=== PATIENT | male | born 1935 | race Caucasian/White ===

== ENCOUNTER 2017-04-12 10:31 | Inpatient (IN) | payer MEDICARE, OTHER ==
[~2017-04-12] VITALS: Ht 165.1 cm; Wt 70.0 kg
[2017-04-12] VITALS (35 sets, daily range): BP systolic 80–149; BP diastolic 28–83; PULSE 63–106; RESP 12–45; Ht 165.1 cm; Wt 70.0 kg
[2017-04-12] MEDS ORDERED: SOD CHLORIDE 0.9% 1,000 ML IV STA ×2 (10:32)
[2017-04-12] MEDS ORDERED: CEFEPIME 2GM/50 ML (PMX) 50 ML IVPB STA (10:32)
[2017-04-12] MEDS ORDERED: VANCOMYCIN 1 GM (PMX) 250 ML IVPB ONE (11:00)
[2017-04-12 11:15] LABS: ABNORMAL IP MESSAGE 1; BASOPHILS % 0.2 % (0.0-2.0); EOSINOPHILS # 0.1 10^3/ul (0.0-0.5); EOSINOPHILS % 0.7 % (0.0-7.0); HEMOGLOBIN 8.7 g/dl (14.0-18.0); LYMPHOCYTES # 0.9 10^3/ul (0.8-2.9); LYMPHOCYTES % 7.8 % (15.0-51.0); MEAN CORPUSCULAR HEMOGLOBIN 29.6 pg (29.0-33.0); MEAN CORPUSCULAR HGB CONC 32.2 g/dl (32.0-37.0); MEAN CORPUSCULAR VOLUME 91.8 fl (82.0-101.0); MEAN PLATELET VOLUME 10.4 fl (7.4-10.4); MONOCYTE # 1.3 10^3/ul (0.3-0.9); MONOCYTES % 11.4 % (0.0-11.0); NEUTROPHIL # 9.2 10^3/ul (1.6-7.5); NEUTROPHILS % 79.4 % (39.0-77.0); PLATELET COUNT 93 10^3/UL (140-415); POSITIVE DIFF @See below; RED BLOOD COUNT 2.94 10^6/ul (4.70-6.10); RED CELL DISTRIBUTION WIDTH 17.3 % (11.5-14.5); WHITE BLOOD COUNT 11.5 10^3/ul (4.8-10.8)
--- NOTE | 2017-04-12 11:19 | RADRPT ---
PROCEDURE: XR Chest. CLINICAL INDICATION: Sepsis. TECHNIQUE: Single frontal view. COMPARISON: None. FINDINGS: There is mild right basilar atelectasis. The lungs are otherwise clear. The heart is enlarged. There is calcification in the aorta consistent with atherosclerosis. There ar e sternal wires and mediastinal clips. There is a tracheostomy tube in satisfactory position. There is no pleural effusion. There is no pneumothorax. IMPRESSION: 1. Mild right basilar atelectasis. 2. Cardiomegaly and atherosclerosis. 3. Previous median sternotomy. 4. Tracheostomy tube. 5. Otherwise unremarkable chest radiograph. RPTAT: QQ .Alan Nash MD, MD Date Time Electronically viewed and signed by .Alan Nash MD, MD on 04/12/2017 11:19 .R/
[2017-04-12 11:28] LABS: AADO2 Arterial 186.8 mmHg (7.0-24.0); Allen Test ACCEPTAB; Arterial Base Excess 1.3 mmol/L (-3.0-3); Arterial COHb 0.3 % (0.0-3.0); Arterial Fraction of Oxyhgb 97.9 % (93.0-99.0); Arterial HCO3 25.5 mmol/L (22.0-26.0); Arterial MetHb 0.2 % (0.0-1.5); Arterial Total Hemglobin 9.4 g/dl (12.0-18.0); MODE VENT - AC
[2017-04-12 11:37] LABS: ALBUMIN 3.7 g/dl (3.3-4.9); ALBUMIN/GLOBULIN RATIO 1.05; BILIRUBIN,INDIRECT 0.3 mg/dl (0-1.1); BILIRUBIN,TOTAL 0.3 mg/dl (0.2-1.3); CALCIUM 9.5 mg/dl (8.4-10.2); CREATININE 0.79 mg/dl (0.61-1.24); POTASSIUM 5.3 mmol/L (3.5-5.1); TOTAL PROTEIN 7.2 g/dl (6.1-8.1)
[2017-04-12 11:47] LABS: INR 1.09; PROTIME 14.1 Sec (12.2-14.2); PT RATIO 1.1
[2017-04-12 11:48] LABS: PARTIAL THROMBOPLASTIN TIME 33.4 Sec (25.0-35.0)
[2017-04-12] MEDS ORDERED: SOD CHLORIDE 0.9% 500 ML IV STA (11:48)
[2017-04-12 11:49] LABS: TROPONIN-I 0.056 ng/ml (0.00-0.12)
[2017-04-12] MEDS ORDERED: ONDANSETRON 4 MG INJ IV PRN ×2 (12:00→15:00)
[2017-04-12] MEDS ORDERED: ACETAMINOPHEN 325 MG TAB PO PRN (12:00)
[2017-04-12] MEDS ORDERED: LACTINEX GTB (13:30)
[2017-04-12] MEDS ORDERED: LORA-441 GTB (13:32)
[2017-04-12] MEDS ORDERED: CHLO473M4 MM (13:32)
[2017-04-12] MEDS ORDERED: DOCU-144 GTB (13:33)
[2017-04-12] MEDS ORDERED: PHEN100O4 GTB (13:34)
[2017-04-12] MEDS ORDERED: BISA10SU75 PR (13:34)
--- NOTE | 2017-04-12 13:35 | RADRPT ---
PROCEDURE: CT Brain without contrast. CLINICAL INDICATION: Altered mental status. Possible sepsis. TECHNIQUE: A CT of the brain was performed on a multidetector CT scanner utilizing axial sections from the skull base through the vertex without contrast. Images were reviewed on a high-resolution [employer] workstation. Exam CTDI = 43.05 mGy and the DLP = 720.23 mGy-cm. DICOM images are available. One or more of the following dose reduction techniques were used: Automated exposure control Adjustment of the mA and/or kV according to patient size. Use of iterative reconstruction technique. COMPARISON: None available FINDINGS: Moderately severe diffuse cerebral and cerebellar atrophy is present. There is proportionate dilata tion of the ventricular system and sulci in a symmetric fashion. There is prominence of the extraaxi al spaces secondary to atrophy. There is no evidence of intracranial hemorrhage, mass effect or midl ine shift. There is approximately 1.1 x 0.7 cm extra-axial calcified structure in the right anterior middle cranial fossa along the lesser wing of the right sphenoid bone suggestive of a meningioma. N o abnormal intra-axial or extra-axial fluid collections are seen. The density of the brain is josh l and the wagner/white matter differentiation is well preserved. Mild patchy diffuse deep white matte r microangiopathic ischemic change is seen. The osseous structures are unremarkable. There is ne ar complete opacification of the sphenoid sinuses and posterior ethmoidal air cells. There is partia l opacification of the bilateral maxillary sinuses. Frontal sinuses are clear. Bilateral mastoid air cells and middle ear cavities are clear.. Vascular calcifications are identified. IMPRESSION: 1. No intracranial hemorrhage, mass effect or midline shift. 2. Moderately severe generalized atrophy. Mild microangiopathic ischemic change. 3. Intracranial atherosclerosis. 4. Paranasal sinus disease more evident in the sphenoid and posterior ethmoidal air cells. 5. Presumed small calcified meningioma in the right middle cranial fossa. No perilesional edema or associated mass effect. RPTAT: BB .Alexis Watkins MD, Date Time Electronically viewed and signed by .Alexis Watkins MD, on 04/12/2017 13:34 .O/
[2017-04-12] MEDS ORDERED: MINE133E23 PR (13:36)
[2017-04-12] MEDS ORDERED: FER325 GTB (13:36)
[2017-04-12] MEDS ORDERED: TERA1CAP39 GTB (13:37)
[2017-04-12] MEDS ORDERED: FURO20TA3 GTB (13:38)
[2017-04-12] MEDS ORDERED: LATA2.5D2 BOTH EYES (13:38)
[2017-04-12] MEDS ORDERED: ATOR20TA38 PO (13:39)
[2017-04-12] MEDS ORDERED: METO-448 PO (13:40)
[2017-04-12] MEDS ORDERED: ENOX40DI14 SC (13:42)
[2017-04-12] MEDS ORDERED: NIAC500T81 GTB (13:43)
[2017-04-12] MEDS ORDERED: MAGN400O4 GTB (13:43)
[2017-04-12] MEDS ORDERED: MULTI PO (13:43)
[2017-04-12] MEDS ORDERED: HYDR-906 GTB (13:44)
[2017-04-12] MEDS ORDERED: NICO1PAT43 TD (13:44)
[2017-04-12] MEDS ORDERED: FINA5TAB GTB (13:45)
[2017-04-12] MEDS ORDERED: POTA20LI5 GTB (13:45)
[2017-04-12] MEDS ORDERED: PANT40TA3 GTB (13:47)
[2017-04-12] MEDS ORDERED: MONT10TA21 GTB (13:49)
[2017-04-12] MEDS ORDERED: FENO145T25 GTB (13:49)
[2017-04-12] MEDS ORDERED: BETH25TA39 GTB (13:50)
[2017-04-12] MEDS ORDERED: ACET-2047 GTB (13:50)
[2017-04-12] MEDS ORDERED: CRAN3875 GTB (13:50)
[2017-04-12] MEDS ORDERED: FUROSEMIDE 40 MG INJ ONE (13:51)
[2017-04-12] MEDS ORDERED: VALP250C3 GTB (13:53)
[2017-04-12] MEDS ORDERED: morphine 2 MG INJ IV STA (13:54)
[2017-04-12] MEDS ORDERED: CHOL100062 GTB (13:55)
[2017-04-12] MEDS ORDERED: VIT500LI GTB (13:55)
[2017-04-12] MEDS ORDERED: LEVA1.257 INHALATION (13:56)
[2017-04-12] MEDS ORDERED: morphine 2 MG INJ ONE (13:56)
--- NOTE | 2017-04-12 13:58 | ERD ---
ER Documentation Chief Complaint Chief Complaint bib paramedics from alf - altered loc HPI Patient is a 81-year-old male who presents more altered than usual. He came from a nursing facility. He was brought in by ambulance. Please note the history and physical exam is limited secondary to the patient's encephalopathy. Dr. Ramirez is the patient's primary doctor and said the patient had a fever at the nursing facility. ROS All systems reviewed and are negative except as per history of present illness. Medications Home Meds Reported Medications Cholecalciferol* (Vitamin D3*) 1,000 Unit Tablet, 2000 UNIT GTB DAILY, TAB 04/12/17 Vit C-Ascorbate Ca-Ascorb Sod (Vitamin C) 500 Mg/15 Ml Liquid, 500 MG GTB BID, ML 04/12/17 Valproic Acid* (Valproic Acid*) 250 Mg Capsule, 250 MG GTB BID, CAP 04/12/17 Cran/Vitc/Mannose/Inulin/Brom (Uti-Stat Liquid) 3,875 Mg/30 Ml Liquid, 3875 MG GTB DAILY 04/12/17 Bethanechol Chloride* (Urecholine*) 25 Mg Tab, 25 MG GTB DAILY, TAB 04/12/17 Acetaminophen* (Acetaminophen*) 650 Mg Tablet, 650 MG GTB Q6H Y for PAIN AND OR ELEVATED TEMP, #30 TAB 04/12/17 Fenofibrate Nanocrystallized* (Tricor*) 145 Mg Tablet, 145 MG GTB DAILY, TAB 04/12/17 Montelukast Sodium* (Singulair*) 10 Mg Tablet, 10 MG GTB QHS, #30 TAB 04/12/17 Pantoprazole* (Protonix*) 40 Mg Tablet., 40 MG GTB DAILY, TAB 04/12/17 Finasteride* (Proscar*) 5 Mg Tablet, 5 MG GTB DAILY, TAB 04/12/17 Potassium Chloride* (Potassium Chloride*) 20 Meq/15 Ml Liquid, 20 MEQ GTB DAILY , ML 04/12/17 Hydrocodone/Acetaminophen ([place] 5-325 Tablet) 1 Each Tablet, 1 EACH GTB Q6 Y for PAIN, TAB 04/12/17 Nicotine* (Nicotine* Patch) 7 mg/day Patch, 1 PATCH TD DAILY, PATCH 04/12/17 Niacin* (Niacin*) 500 Mg Tablet, 1000 MG GTB DAILY, TAB 04/12/17 Multivitamins* (Theragran*) 1 Tab Tab, 1 TAB PO DAILY, TAB 04/12/17 Magnesium Hydroxide* (Milk Of Magnesia*) 400 Mg/5 Ml Oral.susp, 30 ML GTB DAILY , ML 04/12/17 Enoxaparin Sodium* (Lovenox*) 40 Mg/0.4 Ml Syringe, 40 MG SC DAILY, SYR 04/12/17 Metoprolol Tartrate* (Lopressor*) 25 Mg Tab, 25 MG PO BID, #60 TAB 04/12/17 Atorvastatin Calcium* (Atorvastatin Calcium*) 20 Mg Tablet, 20 MG PO QHS, #30 TAB 04/12/17 Latanoprost (Latanoprost) 2.5 Ml Drops, 1 DROP BOTH EYES QHS, #1 BOTTLE 04/12/17 Furosemide* (Furosemide*) 20 Mg Tablet, 20 MG GTB DAILY, #60 TAB 04/12/17 Terazosin Hcl* (Hytrin*) 1 Mg Cap, 1 MG GTB DAILY, CAP 04/12/17 Mineral Oil* (Fleet* Mineral Oil Enema) 133 Ml Oil, 133 ML [place] DAILY Y for CONSTIPATION, ENEMA 04/12/17 Ferrous Sulfate* (Ferrous Sulfate*) 325 Mg Tabec, 330 MG GTB TID, TAB 04/12/17 Bisacodyl* (Bisacodyl*) 10 Mg Supp, 10 MG [place] Q24H for CONSTIPATION, SUPP 04/12/17 Phenytoin* (Dilantin* Susp) 100 Mg/4 Ml Oral.susp, 200 MG GTB Q12 for 30 Days, BOTTLE 04/12/17 Docusate Sodium* (Colace*) 100 Mg Capsule, 100 MG GTB BID, #60 CAP 04/12/17 Chlorhexidine Gluconate (Peridex) 473 Ml Mouthwash, 15 ML MM BID, BOTTLE 04/12/17 Lorazepam* (Ativan*) 0.5 Mg Tablet, 0.5 MG GTB BID Y for ANXIETY, #30 TAB 04/12/17 Lactobacillus Acidophilus* (Lactinex*) 1 Tab Chew, 1 TAB GTB DAILY, TAB 04/12/17 PMhx/Soc History of Surgery: Yes (gastrostomy; tracheostomy) Hx Neurological Disorder: Yes (encephalopahy) Hx Respiratory Disorders: Yes (acute resp failure; copd) Hx Cardiac Disorders: Yes (atherosclerotic heart disease; hypertension; dm) Hx Miscellaneous Medical Probl: Yes (chronic kidney disease) Hx Alcohol Use: No Hx Substance Use: No Hx Tobacco Use: No Smoking Status: Never smoker FmHx Unable to obtain Physical Exam Vitals Vital Signs Date Time Temp Pulse Resp B/P Pulse Ox O2 Delivery O2 Flow Rate FiO2 04/12/17 11:30 68 19 107/47 99 Mechanical Ventilator 04/12/17 11:04 65 16 100 50 04/12/17 10:40 Venti Mask 04/12/17 10:35 99.4 66 18 115/52 100 Physical Exam Const: Chronically ill Head: Atraumatic Eyes: Normal Conjunctiva ENT: Normal External Ears, Nose and Mouth. Neck: Full range of motion..~ No meningismus. Resp: Rhonchorous breath sounds diffusely Cardio: Regular rate and rhythm, no murmurs Abd: Soft, non tender, non distended. Normal bowel sounds Skin: Pale skin Back: No midline or flank tenderness Ext: No cyanosis, or edema Neur: Awake encephalopathic at baseline Result Diagram: 04/12/17 1100 04/12/17 1100 Results 24 hrs Laboratory Tests Test 04/12/17 10:51 04/12/17 11:00 Blood Gas Specimen Source Blood arterial Arterial Blood Date Drawn 04/12/2017 11:05:55 AM Arterial Blood pH (Temp corrected) 7.438 Arterial Blood pCO2 (Temp correct) 38.6mmhg Arterial Blood pO2 (Temp corrected) 126.3mmHG Arterial Blood HCO3 25.5mmol/L Arterial Blood Base Excess 1.3mmol/L Arterial Blood Oxygen Saturation 98.4mmHG Cecil Test ACCEPTAB Arterial Blood Gas Puncture Site Right Radial Arterial Blood Carboxyhemoglobin 0.3% Arterial Blood Methemoglobin 0.2% Blood Gas A-a O2 Differential 186.8mmHg Oxyhemoglobin Percent 97.9% Total Hemoglobin 9.4g/dl Blood Gas Temperature 37.0C Blood Gas Respiration Rate 16.0 Blood Gas Actual Respiration Rate 16 Blood Gas Modality VENT - AC FiO2 50.0% Blood Gas Tidal Volume 500.0mL Blood Gas Low PEEP Setting 5.0cmH2O Blood Gas Notified Whom NAZ RODRIGUEZ Blood Gas Notified Time 04/12/2017 11:28:05 AM White Blood Count 11.510^3/ul Red Blood Count 2.9410^6/ul Hemoglobin 8.7g/dl Hematocrit 27.0% Mean Corpuscular Volume 91.8fl Mean Corpuscular Hemoglobin 29.6pg Mean Corpuscular Hemoglobin Concent 32.2g/dl Red Cell Distribution Width 17.3% Platelet Count 9310^3/UL Mean Platelet Volume 10.4fl Neutrophils % 79.4% Lymphocytes % 7.8% Monocytes % 11.4% Eosinophils % 0.7% Basophils % 0.2% Nucleated Red Blood Cells % 0.0/100WBC Neutrophils # 9.210^3/ul Lymphocytes # 0.910^3/ul Monocytes # 1.310^3/ul Eosinophils # 0.110^3/ul Basophils # 0.010^3/ul Nucleated Red Blood Cells # 0.010^3/ul Prothrombin Time 14.1Sec Prothrombin Time Ratio 1.1 INR International Normalized Ratio 1.09 Activated Partial Thromboplast Time 33.4Sec Sodium Level 137mmol/L Potassium Level 5.3mmol/L Chloride Level 98mmol/L Carbon Dioxide Level 29mmol/L Anion Gap 15 Blood Urea Nitrogen 47mg/dl Creatinine 0.79mg/dl Glucose Level 193mg/dl Lactic Acid Level 3.0mmol/L Calcium Level 9.5mg/dl Total Bilirubin 0.3mg/dl Direct Bilirubin 0.00mg/dl Indirect Bilirubin 0.3mg/dl Aspartate Amino Transf (AST/SGOT) 37IU/L Alanine Aminotransferase (ALT/SGPT) 26IU/L Alkaline Phosphatase 72IU/L Troponin I 0.056ng/ml Total Protein 7.2g/dl Albumin 3.7g/dl Globulin 3.50g/dl Albumin/Globulin Ratio 1.05 Current Medications Medications (Trade) Dose Ordered Sig/Lulu Route PRN Reason Start Time Stop Time Status Last Admin Dose Admin Cefepime HCl 50 ml @ 100 mls/hr ONCE STAT IVPB 04/12/17 10:32 04/12/17 11:01 DC 04/12/17 11:01 Vancomycin HCl 250 ml @ 125 mls/hr ONCE ONCE IVPB 04/12/17 11:00 04/12/17 12:59 DC 04/12/17 11:48 Sodium Chloride 1,000 ml @ 1,000 mls/hr Q1H STAT IV 04/12/17 10:32 04/12/17 11:31 DC 04/12/17 11:01 Sodium Chloride 1,000 ml @ 1,000 mls/hr Q1H STAT IV 04/12/17 10:32 04/12/17 11:31 DC 04/12/17 11:03 Sodium Chloride (NS) 500 ml @ 500 mls/hr Q1H STAT IV 04/12/17 11:48 04/12/17 12:47 DC 04/12/17 12:41 Procedures/MDM EKG read by me: Rate/Rhythm: Regular rate and rhythm at a normal rate Intervals: Normal Impression: No evidence of ischemia or arrhythmia Chest x-ray shows no pneumonia or pneumothorax per radiology. Admit MDM: Patient's infectious symptoms have not stabilized and the patient is at risk of rapid decompensation. The patient will be admitted for careful hydration, antibiotic therapy, and infectious source control. Severe Sepsis criteria: Infectious source: Likely cystitis End organ damage indicated by: Active greater than 2 Sepsis Management: Time of recognition of sepsis: Upon arrival Within 3 hours of recognition: Blood cultures x 2 before broad-spectrum antibiotics: Yes 30 ml/kg NS bolus Completed Initial lactate 3.0 Repeat lactate pending Time of recognition of septic shock: No septic shock Septic Shock Assessment: Any lactic acid > 4.0 No Persistent hypotension (SBP < 90 or 40 mmHg drop, MAP < 65) despite 30 mL/kg IV fluid bolus No Volume Re-assessment for Septic Shock (post 30 ml/kg bolus): No septic shock at this time Persistent Hypotension Treatment: Comfort care No Central line Not Required Vasopressor started Not required I considered further perfusion assessment with CVP measurement, SCVO2, bedside ultrasound volume assessment, passive leg raise, trial of further fluid bolus. And proceeded with 30 ml/kg fluid bolus of NSS, broad spectrum antibiotics, and admission. Accepting Care Team Current data and ongoing care discussed. Admitting Physician: Dr. Ramirez the primary doctor Customer Service Professional(s): None Outstanding Data: Culture results and repeat lactic acid Critical Care: Critical care time 35 minutes excluding all billable procedures Emergent fluid management while maintaining close respiratory support. Provision of immediate and broad-spectrum antibiotic therapy. Simultaneous assessment for possible sources in order to direct targeted therapy. Consideration for invasive and chemical support to prevent cardiopulmonary collapse. Departure Diagnosis: Primary Impression: Severe sepsis Additional Impression: Altered level of consciousness Condition: Serious SANDRO SOLO MD Apr 12, 2017 13:58
[2017-04-12 14:00] LABS: AADO2 Arterial 357.7 mmHg (7.0-24.0); Allen Test ACCEPTAB; Arterial Base Excess -3.1 mmol/L (-3.0-3); Arterial COHb 0.3 % (0.0-3.0); Arterial Fraction of Oxyhgb 98.8 % (93.0-99.0); Arterial MetHb 0.2 % (0.0-1.5); Arterial Total Hemglobin 10.8 g/dl (12.0-18.0); MODE AMBU BAG
[2017-04-12] MEDS ORDERED: FUROSEMIDE 40 MG INJ IV ONE (14:00)
--- NOTE | 2017-04-12 14:25 | RADRPT ---
PROCEDURE: XR Chest. CLINICAL INDICATION: Chest pain , respiratory distress TECHNIQUE: Single frontal view of the chest was obtained COMPARISON: None FINDINGS: The heart is enlarged. The thoracic aorta is calcified. There is a tracheostomy tube in place. There is mild elevation of the right diaphragm. There are mild bibasilar atelectatic changes. The lungs are otherwise clear. There is no pleural effusion or pneumothorax. RPTAT: AA IMPRESSION: Mild cardiomegaly. Calcified aorta consistent with atherosclerotic disease. Mild elevation of the right diaphragm. Mild bibasilar atelectatic changes. .Leno Nance MD, MD Date Time Electronically viewed and signed by .Leno Nance MD, on 04/12/2017 14:25 .S/
--- NOTE | 2017-04-12 14:34 | QN ---
Documentation Comment MILITARY EDUCATION COORDINATOR called on patient after returning from CT scan . Patient was just admitted from ED for AMS and found to be septic. Patient received IVF per protocol in ED. Patient was found to be tachypneic, in respiratory distress, and belly breathing. Lung sounds were diminished on auscultation. STAT ABG and CXR were ordered. ABG showed respiratory acidosis which was a change from ABG performed in ED. Lasix 40mg IV was given as well as Rodriguez cath was placed. patient had 200cc of urine out. CXR showed pulmonary congestion but no pleural effusions. EKG showed atrial fibrillation in the 100s. Morphine given due to tachypnea and heart rate improved to 80s and BP was 140s/. Patient was transported to ICU for higher level of care. Patients primary was informed of event and Certified Endoscopy Technician was contacted as well. >40 minutes of critical care time was spent with patient during Rapid response. VICTOR MANUEL COLLAZO MD Apr 12, 2017 14:34
--- NOTE | 2017-04-12 14:49 | HP ---
Date/Time of Note Date/Time of Note DATE: 04/12/17 TIME: 14:31 Assessment/Plan VTE Prophylaxis VTE Prophylaxis Intervention: SCD's Assessment/Plan Assessment/Plan -Acute hypoxic respiratory failure, continue ventilatory support, bronchodilators. Dr. Cordova is asked to see patient in pulmonology consultation. -Sepsis. Will obtain sputum blood and urine cultures if not done in the emergency room. Continue broad-spectrum antibiotics. Dr. Nagel is asked to see patient in infection disease consultation. -Atrial fibrillation with rapid ventricular response, Dr. Redd is asked to see patient in cardiology consultation. -Rule out acute coronary syndrome, will obtain cardiac enzymes 3 and 2D echo. -Metabolic encephalopathy -Anemia -Dysphagia with G-tube -History of ventilator dependent respiratory failure with tracheostomy -CHF -Hypertension -Seizure disorder -BPH Further recommendations based on clinical course. Plan of care discussed with Dr. Ramirez. HPI/ROS Admit Date/Time Admit Date/Time Apr 12, 2017 at 11:52 Hx of Present Illness The patient is 81-year-old gentleman from long-term facility. Patient with history of CHF hypertension, chronic kidney disease, ventilator dependent respiratory failure, dysphagia with PEG, seizure disorder, BPH. Patient was brought from long-term facility to emergency room due to altered level of consciousness. Patient cannot provide any history currently intubated on ventilatory support, most of the history was obtained from medical record records and talking to nursing staff. Patient underwent CT of the brain which did not reveal any intracranial hemorrhage, mass effect or midline shift. Patient was noted to have leukocytosis and elevated lactate. Patient was giving IV fluids and started on broad-spectrum antibiotics and admitted to telemetry floor. After 15 minutes of admissions to the telemetry patient went to atrial fibrillation with rapid ventricular response, RT was called patient was giving Lasix was transferred to intensive care unit for further management. PMH/Family/Social Past Medical History per HPI Past Surgical History Status post tracheostomy status post G-tube placement Family History Significant Family History: no pertinent family hx Social History Smoking Status: Never smoker Exam/Review of Systems Vital Signs Vitals Vital Signs Date Time Temp Pulse Resp B/P Pulse Ox O2 Delivery O2 Flow Rate FiO2 04/12/17 12:33 106 04/12/17 12:00 104/43 04/12/17 11:30 19 99 Mechanical Ventilator 04/12/17 11:04 50 04/12/17 10:35 99.4 Exam Constitutional: frail, non-verbal Head: atraumatic, normocephalic Neck: other (Acute ostomy at the base of the neck), supple Respiratory: diminished breath sounds Cardiovascular: nl pulses, regular rate and rhythm Gastrointestinal: non-tender, other (G-tube), soft Musculoskeletal: nl extremities to inspection Extremities: normal pulses Labs Result Diagram: 04/12/17 1100 04/12/17 1100 Medications Medications Current Medications Furosemide (Lasix) 40 mg ONCE ONCE IV ; Start 04/12/17 at 14:00; Stop at 14:01; Status SAMANTHAV AAMIR ZUNIGA Apr 12, 2017 14:43
[2017-04-12] MEDS ORDERED: IPRATROPIUM (NEB) 0.5 MG/2.5 ML AMP NEB PRN (15:00)
[2017-04-12] MEDS ORDERED: ACETAMINOPHEN 650MG/20.3ML CUP PO PRN (15:00)
[2017-04-12] MEDS ORDERED: NACL 0.9% 3 ML SYG IV SCH (15:00)
[2017-04-12] MEDS ORDERED: ALBUTEROL 0.083% (NEB) 2.5 MG/3 ML AMP NEB PRN (15:00)
[2017-04-12] MEDS ORDERED: morphine 2 MG INJ IV PRN (15:00)
--- NOTE | 2017-04-12 15:22 | CONS ---
DATE OF ADMISSION: 04/12/2017 DATE OF CONSULTATION: 04/12/2017 TYPE OF CONSULTATION: Infectious Disease. REASON FOR CONSULTATION: Antibiotic management. HISTORY OF PRESENT ILLNESS: Roldan Kelly is a 81-year-old male who was admitted through the [facility] room with altered levels of consciousness and is being seen for antibiotic management. The p atient is encephalopathic. Problems include: 1. Status post tracheostomy. 2. Gastrostomy. 3. Encephalopathy. 4. Acute respiratory failure. 5. Chronic obstructive pulmonary disease. 6. Coronary artery disease. 7. Hypertension. 8. Diabetes mellitus 9. Chronic renal disease. Acutely, the patient comes in encephalopathic and short of breath. In the emergency room, his tempe rature was 99.4. PAST MEDICAL HISTORY: Operations as outlined. FAMILY HISTORY: Noncontributory. SOCIAL HISTORY: Does not smoke, drink or abuse drugs. ALLERGIES: NONE TO PENICILLIN, SULFA OR FOODS. MEDICATIONS: Per chart. REVIEW OF SYSTEMS: Noncontributory. PHYSICAL EXAMINATION: GENERAL: The patient is a chronically ill-appearing male who is awake, responsive, in no acute dist ress. VITAL SIGNS: Stable. He is afebrile. SKIN: Without generalized rash. HEENT: Within normal limits. NECK: Supple. LYMPH NODES: None palpable. CHEST: Decreased breath sounds at the bases. HEART: Without murmur or gallop. ABDOMEN: Soft, nontender, without organosplenomegaly or masses. EXTREMITIES: Without cyanosis, clubbing, or edema. RECTAL AND GENITAL: Exams deferred. NEUROLOGICAL: No focal neurological abnormality is noted. He has a tracheostomy. HOSPITAL COURSE: On chest x-ray, the heart is enlarged. No pleural effusion. Lungs were clear. T he patient was transported to the ICU, tachypneic, in respiratory distress. Lungs sounds diminished . Rodriguez catheter was placed. IMPRESSION AND PLAN: The patient was in atrial fibrillation and he was started on vancomycin and ce fepime, which we should continue. I will dictate my findings to the hospitalist. Dictated By: LAURA DAWN MD, JD/NTS Conf#: [id number] DID#: [id number] CC: ROSHNI FABIAN MD; JOSE MARTIN GLYNN MD;*EndCC*
[2017-04-12] MEDS ORDERED: METOPROLOL 5 MG INJ IV PRN (15:30)
[2017-04-12] MEDS ORDERED: GLUCOSE GEL 15 GRAM TUBE PO PRN ×2 (15:30)
[2017-04-12] MEDS ORDERED: DEXTROSE 50% 50 ML SYRINGE IV PRN ×2 (15:30)
[2017-04-12] MEDS ORDERED: MIDAZOLAM (DRIP) 50 mg/50 mL 50 ML IV SCH (15:30)
[2017-04-12] MEDS ORDERED: GLUCAGON 1 MG INJ IM PRN (15:30)
[2017-04-12] MEDS ORDERED: GLUCOSE GEL 15 GRAM TUBE BUCCAL PRN (15:30)
[2017-04-12 15:49] LABS: AADO2 Arterial 238.5 mmHg (7.0-24.0); Allen Test ACCEPTAB; Arterial COHb 0.3 % (0.0-3.0); Arterial Fraction of Oxyhgb 99.2 % (93.0-99.0); Arterial HCO3 21.7 mmol/L (22.0-26.0); Arterial MetHb 0.1 % (0.0-1.5); Arterial Total Hemglobin 10.7 g/dl (12.0-18.0); Blood Gas Low PEEP Setting 0 cmH2O; MODE VENT - AC
--- NOTE | 2017-04-12 17:01 | CONS ---
DATE OF ADMISSION: 04/12/2017 DATE OF CONSULTATION: 04/12/2017 REASON FOR CONSULTATION: Paroxysmal atrial fibrillation with rapid ventricular response. REQUESTING PHYSICIAN: Roshni Ramirez MD HISTORY OF PRESENT ILLNESS: Mr. Kelly is a 81-year-old male with a history of chronic respirato ry failure, status post tracheostomy, encephalopathy, congestive heart failure, hypertension, chroni c kidney disease, dysphagia, status post G-tube, seizure disorder, BPH, who initially presented to [facility] with worsening mental status, respiratory distress. Initially upon arrival, temperature 99. 4, blood pressure 115/52, pulse 60, respiratory rate 18, satting 100%. The patient's labs revealed a white count 11.5, ____ 8.7, platelet count 93. Sodium 137, potassium 5.3, creatinine 0.79, BUN 47 , lactic acid 3. ABG revealing a pH of 7.43, a PaO2 of 126, and a pCO2 of 38. Patient underwent a chest x-ray revealing mild right basilar atelectasis, cardiomegaly and atherosclerosis, previous med nakul sternotomy. A head CT revealing no intracranial hemorrhage, mass effect or midline shift. ____ severe generalized atrophy, mild ____ ischemic change, presumed small calcified meningioma in the r ight middle cranial fossa. The patient's electrocardiogram revealed initially sinus rhythm, first-d egree ____ block, rate of 64 with right bundle ____ block, secondary repolarization abnormalities. Patient then was admitted to the floor and on the floor had ____ and went into atrial fibrillation, mild rapid ventricular response. The patient in the setting also had an ABG checked as respiratory status was worsening, now revealing a pH of 7.187, a PaO2 of 285, with a pCO2 now of 70. The patien t has now been transferred to the ICU where he remains in sinus rhythm with increased respiratory ra te and marginal but stable blood pressures. PAST MEDICAL HISTORY: As above in HPI. MEDICATIONS CURRENTLY IN HOSPITAL: 1. ____ IV q.12. 2. Dilantin 200 mg q.12. 3. Valproic acid. 4. Albuterol. 5. Atrovent. 6. Tylenol. 7. Morphine. ALLERGIES: NO KNOWN DRUG ALLERGIES. SOCIAL HISTORY: No tobacco, ETOH or illicit drug use. FAMILY HISTORY: Negative for sudden cardiac or early CAD. REVIEW OF SYSTEMS: As above in HPI. CONSTITUTIONAL: No fevers, chills. PULMONARY: Chronic respiratory failure, status post trach. GASTROINTESTINAL: Dysphagia, status post G-tube. GENITOURINARY: No hematuria. MUSCULOSKELETAL: Degenerative joint disease. PSYCHIATRIC: No documented psych history. NEUROLOGIC: Encephalopathy. PHYSICAL EXAMINATION: VITAL SIGNS: Temperature of 98.4, blood pressure of 104/43, pulse 70, saturating 100%, FiO2 of 35. GENERAL: The patient is encephalopathic, nonresponsive. NECK: Tracheostomy in place. CHEST: Upper airway sounds are rhonchorous sounds. HEART: Regular rate and rhythm. Normal S1, increased S2, I/ systolic murmur, nondisplaced PMI. ABDOMEN: Positive bowel sounds, soft, positive G-tube. EXTREMITIES: Trace edema at the feet, 1+ pulses bilaterally, posterior tibial. LABORATORY DATA: As above in HPI. No further labs for my review at this time. IMAGING STUDIES: As above in HPI. No further imaging studies for my review at this time. ECG: As above in HPI. No further electrocardiograms for my review at this time. IMPRESSION: 1. Paroxysmal atrial fibrillation with rapid ventricular response, now back into sinus rhythm. 2. Abnormal electrocardiogram, assess for acute coronary syndrome. 3. Respiratory failure, chronic, with worsening. 4. Respiratory acidosis. 5. Encephalopathy. 6. Anemia. 7. Seizure disorder. RECOMMENDATIONS: 1. At this time would maintain patient ____ telemetry monitoring, follow rhythm and rate closely. 2. Will give patient p.r.n. IV push beta loren as necessary for heart rate control and will start low-dose beta-loren as tolerated. 3. Check a 2D echocardiogram to further assess patient's ejection fraction, wall motion and any mikki or valve abnormalities. 4. Check a TSH to be sure that subclinical hyperthyroidism is not contributing to bouts of tachyarr hythmia. 5. Would correct the patient's acidosis with the vent. 6. Continue the patient's anti-seizure medication with Dilantin. 7. We will complete a rule out for myocardial infarction to ensure this patient's coughing sy mptoms are not result of or not resulting in acute coronary syndrome such as acute myocardial infarc tion. 8. Follow the patient's potassium closely. 9. Continue the patient's bronchodilators. 10. Ongoing discussion with family about the patient's code status. Thank you for allowing me to take part in the care of this patient. I will continue to follow him a long very closely with you. Further recommendations will be made as the patient progresses through his inpatient hospital clinical course. Dictated By: DESIREE SCHAEFER/DAVID Conf#: [id number] DID#: [id number] CC: ROSHNI RAMIREZ MD;*EndCC*
--- NOTE | 2017-04-12 17:16 | CONS ---
DATE OF ADMISSION: 04/12/2017 DATE OF CONSULTATION: 04/12/2017 PULMONARY CONSULTATION Thank you, Dr. Ramirez, for this consultation. HISTORY OF PRESENT ILLNESS: This is a 81-year-old gentleman with multiple medical problems, [facility] distress, hypoxemia today, found to have progress renu hypoxemia with desaturation, arterial blood gas demonstrating acute hypercapnic respiratory fail ure. Upon further examination, the patient had elevated peak pressures and difficulty bagging patie nt likely secondary to endotracheal tube obstruction. Following adjustment, adequate tidal volumes were obtained. The patient was less diaphoretic with improved hypoxemia. PAST MEDICAL HISTORY: 1. Vent dependent respiratory failure. 2. Encephalopathy. 3. Chronic atrial fibrillation. 4. Dysphagia with G-tube. 5. History of congestive heart failure. 6. Seizure disorder. MEDICATIONS: Per chart. ALLERGIES: NONE. SOCIAL HISTORY: Nonsmoker, no alcohol, no history of drug use. FAMILY HISTORY: Noncontributory. SYSTEMS REVIEW: A 12-point review of systems unable to perform. PHYSICAL EXAMINATION: GENERAL: Chronically ill appearing gentleman, eyes open, diaphoretic on mechanical ventilation. VITAL SIGNS: Currently afebrile, temperature 98, pulse is 117/49, O2 saturation 96% on FIO2 of 50%. NECK: Trach site appears clean and intact. CARDIAC: S1, S2, no added sounds or murmurs. CHEST: Diminished air entry bilaterally. ABDOMEN: Soft, nontender. No guarding or rebound. EXTREMITIES: No cyanosis, clubbing, edema. NEUROLOGIC: Generalized weakness. LABORATORY DATA: White count 11.5, hemoglobin 8.7, platelets of 93, BUN 47, creatinine 1.73. Lacti c acid initially 3, repeat blood gas following adjustment of tracheostomy pH 7.33, pCO2 of 41, PaO2 of 432. DIAGNOSTIC DATA: Chest x-ray shows mild cardiomegaly, no infiltrates or effusions, no pneumonia or pleural effusions. IMPRESSION AND PLAN: 1. Likely hypercapnic respiratory failure secondary to tracheostomy tube adjacent to tracheal wall causing obstruction. 2. Chronic respiratory failure. 3. Chronic encephalopathy. 4. Dysphagia with G-tube. The patient will require: 1. Adjustment of tracheostomy. 2. ENT evaluation for possible XLT tracheostomy. 3. Continue tube feeding. 4. Deep venous thrombosis and gastrointestinal prophylaxis. 5. Address code status as overall prognosis is very poor. Dictated By: JOSE MARTIN TRINIDAD/DAVID Conf#: [id number] DID#: [id number] CC: ROSHNI RAMIREZ MD;*EndCC*
[2017-04-12] MEDS: INSULIN ASPART [NOVOLOG] 3 ML PEN SC SCH ×2 (17:46→21:11)
--- NOTE | 2017-04-12 18:48 | PN ---
DATE: 04/12/2017 I had a lengthy discussion reading goals of care with the patient's children as well as patient's br other. The patient is a 81-year-old gentleman with history of chronic respiratory failure with tracheostomy for about 5 years, subacute, and has had multiple hospitalizations in the past 5 years. The patien t was currently at [facility] subacute unit and was noted to have a fever and altered men álvaro status. Patient was transferred to [facility] ER. The patient is currently lethargic and no useful communication was possible. Code status and goals of care discussed with the family. The patient has declining quality of life. In fact, the patient had expressed his wishes to the children that he did not want to prolong his life in this condition. For now, the patient's family has requested that patient be made DNR and if there is no improvement in his mental status, they will consider hospice. Dictated By: ROSHNI BRADFORD/DAVID Conf#: [id number] DID#: [id number]
[2017-04-12 20:08] LABS: ABNORMAL IP MESSAGE 1; BASOPHILS % 0.1 % (0.0-2.0); EOSINOPHILS % 0.1 % (0.0-7.0); HEMATOCRIT 26.7 % (42.0-52.0); HEMOGLOBIN 8.5 g/dl (14.0-18.0); LYMPHOCYTES # 1.3 10^3/ul (0.8-2.9); LYMPHOCYTES % 9.4 % (15.0-51.0); MEAN CORPUSCULAR HEMOGLOBIN 29.8 pg (29.0-33.0); MEAN CORPUSCULAR HGB CONC 31.8 g/dl (32.0-37.0); MEAN CORPUSCULAR VOLUME 93.7 fl (82.0-101.0); MEAN PLATELET VOLUME 9.3 fl (7.4-10.4); MONOCYTE # 1.9 10^3/ul (0.3-0.9); MONOCYTES % 13.7 % (0.0-11.0); NEUTROPHIL # 10.7 10^3/ul (1.6-7.5); NEUTROPHILS % 75.9 % (39.0-77.0); PLATELET COUNT 96 10^3/UL (140-415); POSITIVE DIFF @See below; RED BLOOD COUNT 2.85 10^6/ul (4.70-6.10); RED CELL DISTRIBUTION WIDTH 16.9 % (11.5-14.5); WHITE BLOOD COUNT 14.1 10^3/ul (4.8-10.8)
[2017-04-12 20:30] LABS: ALBUMIN 3.3 g/dl (3.3-4.9); ALBUMIN/GLOBULIN RATIO 1.1; BILIRUBIN,DIRECT 0.6 mg/dl (0.00-0.20); BILIRUBIN,INDIRECT 0.4 mg/dl (0-1.1); CALCIUM 8.8 mg/dl (8.4-10.2); CREATININE 0.68 mg/dl (0.61-1.24); TOTAL PROTEIN 6.3 g/dl (6.1-8.1)
[2017-04-12 20:39] LABS: TROPONIN-I 0.088 ng/ml (0.00-0.12)
[2017-04-12 20:50] LABS: CK-MB 2.46 ng/ml (0.0-2.4)
[2017-04-12] MEDS: FAMOTIDINE 20 MG INJ IV SCH (21:02)
[2017-04-12] MEDS: ATENOLOL 25 MG TAB GTB SCH (21:03)
[2017-04-12] MEDS: VALPROIC ACID 250 MG CAP GTB SCH (21:03)
[2017-04-12] MEDS ORDERED: NORepinephrine 8MG/250 ML (PMX 250 ML ONE (22:37)
[2017-04-12] MEDS ORDERED: SOD CHLORIDE 0.9% 500 ML IV ONE (23:30)
[2017-04-12] MEDS ORDERED: NORepinephrine 8MG/250 ML (PMX 250 ML IV SCH (23:30)
[2017-04-13] VITALS (86 sets, daily range): BP systolic 70–159; BP diastolic 28–137; PULSE 61–80; RESP 12–26
[2017-04-13] MEDS: SOD CHLORIDE 0.9% 1,000 ML IV SCH ×2 (00:57→13:31)
[2017-04-13] MEDS: INSULIN ASPART [NOVOLOG] 3 ML PEN SC SCH ×6 (01:00→21:00)
[2017-04-13] MEDS ORDERED: ACCU-CHEK XX SCH (02:00)
[2017-04-13 02:15] LABS: TROPONIN-I 0.116 ng/ml (0.00-0.12)
[2017-04-13 02:16] LABS: CK-MB 1.9 ng/ml (0.0-2.4)
[2017-04-13 05:33] LABS: BASOPHILS % 0.1 % (0.0-2.0); EOSINOPHILS % 0.1 % (0.0-7.0); HEMATOCRIT 23.9 % (42.0-52.0); HEMOGLOBIN 7.6 g/dl (14.0-18.0); LYMPHOCYTES # 1.4 10^3/ul (0.8-2.9); LYMPHOCYTES % 12.1 % (15.0-51.0); MEAN CORPUSCULAR HEMOGLOBIN 29.8 pg (29.0-33.0); MEAN CORPUSCULAR HGB CONC 31.8 g/dl (32.0-37.0); MEAN CORPUSCULAR VOLUME 93.7 fl (82.0-101.0); MEAN PLATELET VOLUME 10.4 fl (7.4-10.4); MONOCYTE # 1.3 10^3/ul (0.3-0.9); MONOCYTES % 11.6 % (0.0-11.0); NEUTROPHIL # 8.5 10^3/ul (1.6-7.5); NEUTROPHILS % 75.2 % (39.0-77.0); PLATELET COUNT 100 10^3/UL (140-415); POSITIVE DIFF @See below; RED BLOOD COUNT 2.55 10^6/ul (4.70-6.10); RED CELL DISTRIBUTION WIDTH 17.2 % (11.5-14.5); WHITE BLOOD COUNT 11.3 10^3/ul (4.8-10.8)
[2017-04-13 06:41] LABS: TROPONIN-I 0.102 ng/ml (0.00-0.12)
[2017-04-13 06:43] LABS: CK-MB 1.49 ng/ml (0.0-2.4)
[2017-04-13 06:57] LABS: ALBUMIN 2.9 g/dl (3.3-4.9); ALBUMIN/GLOBULIN RATIO 1.03; BILIRUBIN,DIRECT 0.1 mg/dl (0.00-0.20); BILIRUBIN,INDIRECT 0.3 mg/dl (0-1.1); BILIRUBIN,TOTAL 0.4 mg/dl (0.2-1.3); CALCIUM 8.4 mg/dl (8.4-10.2); CREATININE 0.9 mg/dl (0.61-1.24); POTASSIUM 4.4 mmol/L (3.5-5.1); TOTAL PROTEIN 5.7 g/dl (6.1-8.1)
[2017-04-13 07:52] LABS: THYROID STIMULATING HORMONE 0.933 MIU/L (0.465-4.680)
--- NOTE | 2017-04-13 08:59 | RADRPT ---
PROCEDURE: XR Chest. CLINICAL INDICATION: Pneumonia, CHF. TECHNIQUE: Single frontal view of the chest was obtained. COMPARISON: 04/12/2017. FINDINGS: Tracheostomy tube is noted. The cardiomediastinal silhouette appears unchanged. demonstrates enlargement of the cardiac silhouet te. There are aortic calcifications. Postsurgical changes of a CABG. No significant interval change in bibasilar atelectasis. There is elevation of the right hemidiaphra gm. No pleural effusion is seen. No definite pneumothorax. No acute osseous abnormality. IMPRESSION: 1. Cardiomegaly with mild bibasilar atelectasis. 2. Prior CABG. RPTAT: [facility] Physician Kristine Date Time Electronically viewed and signed by Debo Staples Physician on 04/13/2017 08:59 PH/
[2017-04-13] MEDS: ENOXAPARIN 40 MG/0.4 ML SYG SC SCH (09:00)
[2017-04-13] MEDS: ATENOLOL 25 MG TAB GTB SCH ×2 (09:00→21:09)
[2017-04-13 09:12] LABS: AADO2 Arterial 100.7 mmHg (7.0-24.0); Allen Test ACCEPTAB; Arterial COHb 0.6 % (0.0-3.0); Arterial Fraction of Oxyhgb 92.9 % (93.0-99.0); Arterial HCO3 23.1 mmol/L (22.0-26.0); Arterial MetHb 0.2 % (0.0-1.5); Arterial Total Hemglobin 8.7 g/dl (12.0-18.0); MODE VENT - AC
[2017-04-13] MEDS: FAMOTIDINE 20 MG INJ IV SCH ×2 (09:20→21:10)
[2017-04-13] MEDS: VALPROIC ACID 250 MG CAP GTB SCH ×2 (09:20→21:10)
--- NOTE | 2017-04-13 10:34 | CONS ---
Date/Time of Note Date/Time of Note DATE: 04/13/17 TIME: 10:29 Assessment/Plan Assessment/Plan Additional Assessment/Plan Ventilator setting; AC of 16, tidal volume 500, PEEP of 0, 35% FiO2. Chest x-ray was reviewed from today which is essentially unremarkable. Assessment and recommendations; 1. Patient admitted with gram-positive bacteremia and sepsis clinically improving. 2. Advanced dementia. 3. Chronic ventilator dependent respiratory failure. 4. Atrial fibrillation. 5. Chronic seizure disorder. 6. History of prior CABG. 7. Anemia and thrombocytopenia. Continue current supportive care. Prognosis is poor. Consultation Date/Type/Reason Admit Date/Time Apr 12, 2017 at 11:52 Initial Consult Date Type of Consultation: Pulmonary/critical care 24 HR Interval Summary Free Text/Dictation Patient condition remains stable. Patient remains chronically ventilator dependent. Has remained hemodynamically stable. Also still in chronic atrial fibrillation. No overt seizure activity noted. General exam; elderly male, on ventilator via tracheostomy, unresponsive, currently in no distress. Appears contracted. Exam/Review of Systems Vital Signs Vitals Vital Signs Date Time Temp Pulse Resp B/P Pulse Ox O2 Delivery O2 Flow Rate FiO2 04/13/17 08:00 62 04/13/17 05:30 18 102/44 97 04/13/17 05:08 35 04/13/17 05:00 Mechanical Ventilator 04/13/17 04:00 99.5 Intake and Output 04/12/17 04/12/17 04/13/17 15:00 23:00 07:00 Intake Total 2800 ml 75 ml 554.125 ml Output Total 260 ml 315 ml 155 ml Balance 2540 ml -240 ml 399.125 ml Exam HEENT exam; supple neck, no JVD. No lymphadenopathy. Midline trachea. No thyromegaly. Patient has a left corneal opacity. Tracheostomy in place. Insertion site is clean. Patient is edentulous. Chest exam; diminished but clear breath sounds. S1-S2 audible, no murmurs. Irregular rhythm. Abdomen exam; soft, nondistended. G-tube in place. Bowel sounds audible. No organomegaly. Extremity exam; no peripheral edema. There is severe muscular wasting in all 4 extremities. CHECKER exam; patient remains awake but unresponsive. Results Result Diagram: 04/13/17 0500 04/13/17 0500 Results 24 hrs Laboratory Tests Test 04/12/17 10:51 04/12/17 11:00 04/12/17 13:37 04/12/17 15:10 Blood Gas Specimen Source Blood arterial Blood arterial Arterial Blood Date Drawn 04/12/2017 11:05:55 AM 04/12/2017 1:50:07 PM Arterial Blood pH (Temp corrected) 7.438 7.187 *L Arterial Blood pCO2 (Temp correct) 38.6 70.2 H Arterial Blood pO2 (Temp corrected) 126.3 H 285.1 H Arterial Blood HCO3 25.5 26.0 Arterial Blood Base Excess 1.3 -3.1 L Arterial Blood Oxygen Saturation 98.4 99.3 Cecil Test ACCEPTAB ACCEPTAB Arterial Blood Gas Puncture Site Right Radial Right Radial Arterial Blood Carboxyhemoglobin 0.3 0.3 Arterial Blood Methemoglobin 0.2 0.2 Blood Gas A-a O2 Differential 186.8 H 357.7 H Oxyhemoglobin Percent 97.9 98.8 Total Hemoglobin 9.4 L 10.8 L Blood Gas Temperature 37.0 37.0 Blood Gas Respiration Rate 16.0 Blood Gas Actual Respiration Rate 16 Blood Gas Modality VENT - AC AMBU BAG FiO2 50.0 100.0 Blood Gas Tidal Volume 500.0 Blood Gas Low PEEP Setting 5.0 Blood Gas Notified Whom NAZ FORMAN Blood Gas Notified Time 04/12/2017 11:28:05 AM 04/12/2017 2:00:23 PM White Blood Count 11.5 H Red Blood Count 2.94 L Hemoglobin 8.7 L Hematocrit 27.0 L Mean Corpuscular Volume 91.8 Mean Corpuscular Hemoglobin 29.6 Mean Corpuscular Hemoglobin Concent 32.2 Red Cell Distribution Width 17.3 H Platelet Count 93 L Mean Platelet Volume 10.4 Neutrophils % 79.4 H Lymphocytes % 7.8 L Monocytes % 11.4 H Eosinophils % 0.7 Basophils % 0.2 Nucleated Red Blood Cells % 0.0 Neutrophils # 9.2 H Lymphocytes # 0.9 Monocytes # 1.3 H Eosinophils # 0.1 Basophils # 0.0 Nucleated Red Blood Cells # 0.0 Prothrombin Time 14.1 Prothrombin Time Ratio 1.1 INR International Normalized Ratio 1.09 Activated Partial Thromboplast Time 33.4 Sodium Level 137 Potassium Level 5.3 H Chloride Level 98 Carbon Dioxide Level 29 Anion Gap 15 Blood Urea Nitrogen 47 H Creatinine 0.79 Glucose Level 193 Lactic Acid Level 3.0 *H Calcium Level 9.5 Total Bilirubin 0.3 Direct Bilirubin 0.00 Indirect Bilirubin 0.3 Aspartate Amino Transf (AST/SGOT) 37 Alanine Aminotransferase (ALT/SGPT) 26 Alkaline Phosphatase 72 Troponin I 0.056 Total Protein 7.2 Albumin 3.7 Globulin 3.50 H Albumin/Globulin Ratio 1.05 Blood Gas Critical Value Read Back L JONI RN Bedside Glucose 189 271 H Test 04/12/17 15:22 04/12/17 16:08 04/12/17 17:43 04/12/17 19:58 Blood Gas Specimen Source Blood arterial Arterial Blood Date Drawn 04/12/2017 3:40:38 PM Arterial Blood pH (Temp corrected) 7.333 L Arterial Blood pCO2 (Temp correct) 41.8 Arterial Blood pO2 (Temp corrected) 432.7 H Arterial Blood HCO3 21.7 L Arterial Blood Base Excess -4.0 L Arterial Blood Oxygen Saturation 99.6 Cecil Test ACCEPTAB Arterial Blood Gas Puncture Site Right HEEL Arterial Blood Carboxyhemoglobin 0.3 Arterial Blood Methemoglobin 0.1 Blood Gas A-a O2 Differential 238.5 H Oxyhemoglobin Percent 99.2 H Total Hemoglobin 10.7 L Blood Gas Temperature 37.0 Blood Gas Respiration Rate 16.0 Blood Gas Actual Respiration Rate 19 Blood Gas Modality VENT - AC FiO2 100.0 Blood Gas Tidal Volume 500.0 Blood Gas Low PEEP Setting 0 Blood Gas Notified Whom JLD Blood Gas Notified Time 04/12/2017 3:49:19 PM Lactic Acid Level 1.7 2.3 *H Magnesium Level 2.0 Phenytoin (Dilantin) Level 21.8 *H Valproic Acid (Depakene) Level 19 L Bedside Glucose 196 White Blood Count 14.1 #H Red Blood Count 2.85 L Hemoglobin 8.5 L Hematocrit 26.7 L Mean Corpuscular Volume 93.7 Mean Corpuscular Hemoglobin 29.8 Mean Corpuscular Hemoglobin Concent 31.8 L Red Cell Distribution Width 16.9 H Platelet Count 96 L Mean Platelet Volume 9.3 Neutrophils % 75.9 Lymphocytes % 9.4 L Monocytes % 13.7 H Eosinophils % 0.1 Basophils % 0.1 Nucleated Red Blood Cells % 0.0 Neutrophils # 10.7 H Lymphocytes # 1.3 Monocytes # 1.9 H Eosinophils # 0.0 Basophils # 0.0 Nucleated Red Blood Cells # 0.0 Sodium Level 142 Potassium Level 5.0 Chloride Level 101 Carbon Dioxide Level 27 Anion Gap 19 H Blood Urea Nitrogen 49 H Creatinine 0.68 Glucose Level 167 Calcium Level 8.8 Total Bilirubin 1.0 Direct Bilirubin 0.60 #H Indirect Bilirubin 0.4 Aspartate Amino Transf (AST/SGOT) 66 #H Alanine Aminotransferase (ALT/SGPT) 38 Alkaline Phosphatase 50 Creatine Kinase 59 Creatine Kinase Index 4.2 Creatinine Kinase MB (Mass) 2.46 H Troponin I 0.088 Total Protein 6.3 Albumin 3.3 Globulin 3.00 Albumin/Globulin Ratio 1.10 Test 04/12/17 21:01 04/13/17 01:01 04/13/17 01:31 04/13/17 04:30 Bedside Glucose 155 122 Creatine Kinase 71 Creatine Kinase Index 2.7 Creatinine Kinase MB (Mass) 1.90 Troponin I 0.116 Lactic Acid Level 1.1 Test 04/13/17 05:00 04/13/17 06:16 04/13/17 07:00 04/13/17 09:18 White Blood Count 11.3 H Red Blood Count 2.55 L Hemoglobin 7.6 L Hematocrit 23.9 L Mean Corpuscular Volume 93.7 Mean Corpuscular Hemoglobin 29.8 Mean Corpuscular Hemoglobin Concent 31.8 L Red Cell Distribution Width 17.2 H Platelet Count 100 L Mean Platelet Volume 10.4 Neutrophils % 75.2 Lymphocytes % 12.1 L Monocytes % 11.6 H Eosinophils % 0.1 Basophils % 0.1 Nucleated Red Blood Cells % 0.0 Neutrophils # 8.5 H Lymphocytes # 1.4 Monocytes # 1.3 H Eosinophils # 0.0 Basophils # 0.0 Nucleated Red Blood Cells # 0.0 Sodium Level 144 Potassium Level 4.4 Chloride Level 105 Carbon Dioxide Level 25 Anion Gap 18 H Blood Urea Nitrogen 47 H Creatinine 0.90 Glucose Level 131 Hemoglobin A1c 4.7 Calcium Level 8.4 Total Bilirubin 0.4 Direct Bilirubin 0.10 # Indirect Bilirubin 0.3 Aspartate Amino Transf (AST/SGOT) 37 Alanine Aminotransferase (ALT/SGPT) 33 Alkaline Phosphatase 46 Creatine Kinase 74 Creatine Kinase Index 2.0 Creatinine Kinase MB (Mass) 1.49 Troponin I 0.102 Total Protein 5.7 L Albumin 2.9 L Globulin 2.80 Albumin/Globulin Ratio 1.03 Thyroid Stimulating Hormone (TSH) 0.933 Bedside Glucose 136 165 Blood Gas Specimen Source Blood arterial Arterial Blood Date Drawn 04/13/2017 8:45:34 AM Arterial Blood pH (Temp corrected) 7.426 Arterial Blood pCO2 (Temp correct) 36.0 Arterial Blood pO2 (Temp corrected) 70.9 L Arterial Blood HCO3 23.1 Arterial Blood Base Excess -1.0 Arterial Blood Oxygen Saturation 93.6 L Cecil Test ACCEPTAB Arterial Blood Gas Puncture Site Right Radial Arterial Blood Carboxyhemoglobin 0.6 Arterial Blood Methemoglobin 0.2 Blood Gas A-a O2 Differential 100.7 H Oxyhemoglobin Percent 92.9 L Total Hemoglobin 8.7 L Blood Gas Temperature 37.0 Blood Gas Respiration Rate 16.0 Blood Gas Actual Respiration Rate 20 Blood Gas Modality VENT - AC FiO2 30.0 Blood Gas Tidal Volume 500.0 Blood Gas Low PEEP Setting 5.0 Blood Gas Notified Whom DT Blood Gas Notified Time 04/13/2017 9:11:18 AM Medications Medications Current Medications Ondansetron HCl (Zofran Inj) 4 mg Q6H PRN IV NAUSEA AND/OR VOMITING; Start at 15:00 Acetaminophen (Tylenol Liquid) 650 mg Q6H PRN PO PAIN LEVEL 1-3 OR FEVER; Start 04/12/17 at 15:00 Morphine Sulfate (morphine) 2 mg Q4H PRN IV PAIN LEVEL 7-10; Start 04/12/17 at 15:00 Famotidine (Pepcid Iv) 20 mg Q12 IV Last administered on 04/13/17 09:20; Admin Dose 20 MG; Start 04/12/17 at 21:00 Phenytoin (Dilantin Susp (Ped)) 200 mg Q12 GTB ; Start 04/12/17 at 21:00; Status Future Hold Valproic Acid (Depakene) 250 mg BID GTB Last administered on 04/13/17 09:20; Admin Dose 250 MG; Start 04/12/17 at 21:00 Insulin Aspart (Novolog Insulin Pen) NOVOLOG *MILD* ALGORI... Q4 SC Last administered on 04/13/17 09:34; Admin Dose 1 UNIT; Start 04/12/17 at 17:00 Miscellaneous Information 1 ea NOTE XX ; Start 04/12/17 at 15:30 Glucose (Glutose) 15 gm Q15M PRN PO DECREASED GLUCOSE; Start 04/12/17 at 15:30 Glucose (Glutose) 22.5 gm Q15M PRN PO DECREASED GLUCOSE; Start 04/12/17 at 15: 30 Dextrose (D50w Syringe) 25 ml Q15M PRN IV DECREASED GLUCOSE; Start 04/12/17 at 15:30 Dextrose (D50w Syringe) 50 ml Q15M PRN IV DECREASED GLUCOSE; Start 04/12/17 at 15:30 Glucagon (Glucagen) 1 mg Q15M PRN IM DECREASED GLUCOSE; Start 04/12/17 at 15: 30 Glucose (Glutose) 15 gm Q15M PRN BUCCAL DECREASED GLUCOSE; Start 04/12/17 at 15:30 Metoprolol Tartrate (Lopressor) 5 mg Q4H PRN IV HR>110 Hold SBP<100; Start at 15:30 Atenolol 12.5 mg 12.5 mg BID GTB Last administered on 04/12/17 21:03; Admin Dose 12.5 MG; Start 04/12/17 at 21:00 Midazolam HCl (Versed) 50 ml @ 1 mls/hr TITRATE IV ; Start 04/12/17 at 15:30 Enoxaparin Sodium 40 mg 40 mg DAILY SC ; Start 04/13/17 at 09:00 Sodium Chloride 1,000 ml @ 75 mls/hr [id number] IV Last administered on 00:57; Admin Dose 75 MLS/HR; Start 04/12/17 at 23:30 Norepinephrine/ Dextrose (Levophed/D5W) 500 ml @ 1.87 mls/hr TITRATE IV Last administered on 04/13/17 08:33; Admin Dose 18.75 MLS/HR; Start 04/13/17 at 04 :00 LONDON LICEA Apr 13, 2017 10:34
[2017-04-13] MEDS ORDERED: VANCOMYCIN IV PER PHARMACY XX SCH (11:00)
[2017-04-13] MEDS ORDERED: SOD CHLORIDE 0.9% 250 ML IV* ONE (11:07)
[2017-04-13] MEDS ORDERED: VANCOMYCIN 1.5 GM in SOD CHLORIDE 0.9% 250 ML IVPB SCH (11:30)
--- NOTE | 2017-04-13 11:33 | CONS ---
Date/Time of Note Date/Time of Note DATE: 04/13/17 TIME: 11:33 Assessment/Plan Assessment/Plan Chief Complaint/Hosp Course ID PROGRESS NOTE CURRENT ABX: DAY # =>Vanco IV #2 s/p Cefepime x1 04/12 24H INTERVAL SUMMARY * Resting comfortably , afebrile, VSS, NAD, non-communicative, opens eyes and responds to physical touch * Brain CT: Atrophy chronic microischemia (+)Paranasal sinus disease * CXRs: No evidence PNA or CHF reported -> 04/12/18 CXR IMPRESSION:1. Cardiomegaly with mild bibasilar atelectasis.2. Prior CABG. * CHART REVIEWED: See vitals, labs as per below. * MICRO REVIEWED: Kelvin: 04/12/17-1100 Source: BLOOD Sp Descrip : Microbiology BLOOD CULTURE Preliminary BCULT GRAM BOTTLE 1 Gram positive cocci in pairs and clusters . seen on gram stain of the broth Organism 1 GRAM POS COCCI IN PAIR,CLUSTER PHYSICAL EXAMINATION: GENERAL: VSS, afebrile, NAD HEENT: Unremarkable NECK: Supple, trach midline CHEST: Equal chest rise bilaterally, without dyspnea on observation HEART: RRR ABDOMEN: Soft, NT, ND : FC, clear yellow urine EXT: Warm, no edemia SKIN: No rash, no diaphoresis ID ASSESSMENT: 81 yo M PMHx dementia->CVA w/SZs disorder, CAD, CABG, VDRF w/Trach/Peg admit [facility] ICU: 1. Sepsis on admission w/lactic acid 3.0-> 2.3, leukocytosis 14.1 & left shift, tachycardia, acute encephalopathy => work up in process * UA / Urine Cx -> order in computer reads "Active" * 04/12/17 BCx (+) GPC 1/2 bottles preliminary = possible contaminant, no invasives lines present 2. Acute hypoxic respiratory failure; chronic trach 3. Atrial fibrillation with rapid ventricular response-> resolved 4. Anemia - symptomatic 5. CAD, hx of remote CABG & CHF -> r/o ACS 6. Dysphagia with G-tube 7. HTN 8. BPH 9. Paranasal sinus disease ( )MRSA ABX ALLERGIES: None to ABX INVASIVES: PIV CURRENT ABX: Vanco IV + Cefepime ID RECOMMENDATIONS/PLAN: 1. Continue current ABX over the weekend 2. Await final results urine culture still pending . Problems: Consultation Date/Type/Reason Admit Date/Time Apr 12, 2017 at 11:52 Initial Consult Date Exam/Review of Systems Vital Signs Vitals Vital Signs Date Time Temp Pulse Resp B/P Pulse Ox O2 Delivery O2 Flow Rate FiO2 04/13/17 08:00 62 04/13/17 05:30 18 102/44 97 04/13/17 05:08 35 04/13/17 05:00 Mechanical Ventilator 04/13/17 04:00 99.5 Intake and Output 04/12/17 04/12/17 04/13/17 14:59 22:59 06:59 Intake Total 2800 ml 629.125 ml Output Total 550 ml 180 ml Balance 2250 ml 449.125 ml Results Result Diagram: 04/13/17 0500 04/13/17 0500 Results 24 hrs Laboratory Tests Test 04/12/17 13:37 04/12/17 15:10 04/12/17 15:22 04/12/17 16:08 Blood Gas Specimen Source Blood arterial Blood arterial Arterial Blood Date Drawn 04/12/2017 1:50:07 PM 04/12/2017 3:40:38 PM Arterial Blood pH (Temp corrected) 7.187 *L 7.333 L Arterial Blood pCO2 (Temp correct) 70.2 H 41.8 Arterial Blood pO2 (Temp corrected) 285.1 H 432.7 H Arterial Blood HCO3 26.0 21.7 L Arterial Blood Base Excess -3.1 L -4.0 L Arterial Blood Oxygen Saturation 99.3 99.6 Cecil Test ACCEPTAB ACCEPTAB Arterial Blood Gas Puncture Site Right Radial Right HEEL Arterial Blood Carboxyhemoglobin 0.3 0.3 Arterial Blood Methemoglobin 0.2 0.1 Blood Gas A-a O2 Differential 357.7 H 238.5 H Oxyhemoglobin Percent 98.8 99.2 H Total Hemoglobin 10.8 L 10.7 L Blood Gas Temperature 37.0 37.0 Blood Gas Modality AMBU BAG VENT - AC FiO2 100.0 100.0 Blood Gas Critical Value Read Back L JONI RN Blood Gas Notified Whom DASIA FORMAN Blood Gas Notified Time 04/12/2017 2:00:23 PM 04/12/2017 3:49:19 PM Bedside Glucose 189 271 H Blood Gas Respiration Rate 16.0 Blood Gas Actual Respiration Rate 19 Blood Gas Tidal Volume 500.0 Blood Gas Low PEEP Setting 0 Lactic Acid Level 1.7 Magnesium Level 2.0 Phenytoin (Dilantin) Level 21.8 *H Valproic Acid (Depakene) Level 19 L Test 04/12/17 17:43 04/12/17 19:58 04/12/17 21:01 04/13/17 01:01 Bedside Glucose 196 155 122 White Blood Count 14.1 #H Red Blood Count 2.85 L Hemoglobin 8.5 L Hematocrit 26.7 L Mean Corpuscular Volume 93.7 Mean Corpuscular Hemoglobin 29.8 Mean Corpuscular Hemoglobin Concent 31.8 L Red Cell Distribution Width 16.9 H Platelet Count 96 L Mean Platelet Volume 9.3 Neutrophils % 75.9 Lymphocytes % 9.4 L Monocytes % 13.7 H Eosinophils % 0.1 Basophils % 0.1 Nucleated Red Blood Cells % 0.0 Neutrophils # 10.7 H Lymphocytes # 1.3 Monocytes # 1.9 H Eosinophils # 0.0 Basophils # 0.0 Nucleated Red Blood Cells # 0.0 Sodium Level 142 Potassium Level 5.0 Chloride Level 101 Carbon Dioxide Level 27 Anion Gap 19 H Blood Urea Nitrogen 49 H Creatinine 0.68 Glucose Level 167 Lactic Acid Level 2.3 *H Calcium Level 8.8 Total Bilirubin 1.0 Direct Bilirubin 0.60 #H Indirect Bilirubin 0.4 Aspartate Amino Transf (AST/SGOT) 66 #H Alanine Aminotransferase (ALT/SGPT) 38 Alkaline Phosphatase 50 Creatine Kinase 59 Creatine Kinase Index 4.2 Creatinine Kinase MB (Mass) 2.46 H Troponin I 0.088 Total Protein 6.3 Albumin 3.3 Globulin 3.00 Albumin/Globulin Ratio 1.10 Test 04/13/17 01:31 04/13/17 04:30 04/13/17 05:00 04/13/17 06:16 Creatine Kinase 71 74 Creatine Kinase Index 2.7 2.0 Creatinine Kinase MB (Mass) 1.90 1.49 Troponin I 0.116 0.102 Lactic Acid Level 1.1 White Blood Count 11.3 H Red Blood Count 2.55 L Hemoglobin 7.6 L Hematocrit 23.9 L Mean Corpuscular Volume 93.7 Mean Corpuscular Hemoglobin 29.8 Mean Corpuscular Hemoglobin Concent 31.8 L Red Cell Distribution Width 17.2 H Platelet Count 100 L Mean Platelet Volume 10.4 Neutrophils % 75.2 Lymphocytes % 12.1 L Monocytes % 11.6 H Eosinophils % 0.1 Basophils % 0.1 Nucleated Red Blood Cells % 0.0 Neutrophils # 8.5 H Lymphocytes # 1.4 Monocytes # 1.3 H Eosinophils # 0.0 Basophils # 0.0 Nucleated Red Blood Cells # 0.0 Sodium Level 144 Potassium Level 4.4 Chloride Level 105 Carbon Dioxide Level 25 Anion Gap 18 H Blood Urea Nitrogen 47 H Creatinine 0.90 Glucose Level 131 Hemoglobin A1c 4.7 Calcium Level 8.4 Total Bilirubin 0.4 Direct Bilirubin 0.10 # Indirect Bilirubin 0.3 Aspartate Amino Transf (AST/SGOT) 37 Alanine Aminotransferase (ALT/SGPT) 33 Alkaline Phosphatase 46 Total Protein 5.7 L Albumin 2.9 L Globulin 2.80 Albumin/Globulin Ratio 1.03 Thyroid Stimulating Hormone (TSH) 0.933 Bedside Glucose 136 Test 04/13/17 07:00 04/13/17 09:18 Blood Gas Specimen Source Blood arterial Arterial Blood Date Drawn 04/13/2017 8:45:34 AM Arterial Blood pH (Temp corrected) 7.426 Arterial Blood pCO2 (Temp correct) 36.0 Arterial Blood pO2 (Temp corrected) 70.9 L Arterial Blood HCO3 23.1 Arterial Blood Base Excess -1.0 Arterial Blood Oxygen Saturation 93.6 L Cecil Test ACCEPTAB Arterial Blood Gas Puncture Site Right Radial Arterial Blood Carboxyhemoglobin 0.6 Arterial Blood Methemoglobin 0.2 Blood Gas A-a O2 Differential 100.7 H Oxyhemoglobin Percent 92.9 L Total Hemoglobin 8.7 L Blood Gas Temperature 37.0 Blood Gas Respiration Rate 16.0 Blood Gas Actual Respiration Rate 20 Blood Gas Modality VENT - AC FiO2 30.0 Blood Gas Tidal Volume 500.0 Blood Gas Low PEEP Setting 5.0 Blood Gas Notified Whom DT Blood Gas Notified Time 04/13/2017 9:11:18 AM Bedside Glucose 165 Medications Medications Current Medications Ondansetron HCl (Zofran Inj) 4 mg Q6H PRN IV NAUSEA AND/OR VOMITING; Start at 15:00 Acetaminophen (Tylenol Liquid) 650 mg Q6H PRN PO PAIN LEVEL 1-3 OR FEVER; Start 04/12/17 at 15:00 Morphine Sulfate (morphine) 2 mg Q4H PRN IV PAIN LEVEL 7-10; Start 04/12/17 at 15:00 Famotidine (Pepcid Iv) 20 mg Q12 IV Last administered on 04/13/17 09:20; Admin Dose 20 MG; Start 04/12/17 at 21:00 Phenytoin (Dilantin Susp (Ped)) 200 mg Q12 GTB ; Start 04/12/17 at 21:00; Status Future hold Valproic Acid (Depakene) 250 mg BID GTB Last administered on 04/13/17 09:20; Admin Dose 250 MG; Start 04/12/17 at 21:00 Insulin Aspart (Novolog Insulin Pen) NOVOLOG *MILD* ALGORI... Q4 SC Last administered on 04/13/17 09:34; Admin Dose 1 UNIT; Start 04/12/17 at 17:00 Miscellaneous Information 1 ea NOTE XX ; Start 04/12/17 at 15:30 Glucose (Glutose) 15 gm Q15M PRN PO DECREASED GLUCOSE; Start 04/12/17 at 15:30 Glucose (Glutose) 22.5 gm Q15M PRN PO DECREASED GLUCOSE; Start 04/12/17 at 15: 30 Dextrose (D50w Syringe) 25 ml Q15M PRN IV DECREASED GLUCOSE; Start 04/12/17 at 15:30 Dextrose (D50w Syringe) 50 ml Q15M PRN IV DECREASED GLUCOSE; Start 04/12/17 at 15:30 Glucagon (Glucagen) 1 mg Q15M PRN IM DECREASED GLUCOSE; Start 04/12/17 at 15: 30 Glucose (Glutose) 15 gm Q15M PRN BUCCAL DECREASED GLUCOSE; Start 04/12/17 at 15:30 Metoprolol Tartrate (Lopressor) 5 mg Q4H PRN IV HR>110 Hold SBP<100; Start at 15:30 Atenolol 12.5 mg 12.5 mg BID GTB Last administered on 04/12/17 21:03; Admin Dose 12.5 MG; Start 04/12/17 at 21:00 Midazolam HCl (Versed) 50 ml @ 1 mls/hr TITRATE IV ; Start 04/12/17 at 15:30 Enoxaparin Sodium 40 mg 40 mg DAILY SC ; Start 04/13/17 at 09:00 Sodium Chloride 1,000 ml @ 75 mls/hr [id number] IV Last administered on 00:57; Admin Dose 75 MLS/HR; Start 04/12/17 at 23:30 Norepinephrine 16 mg/Dextrose 500 ml @ 1.87 mls/hr TITRATE IV Last administered on 04/13/17 08:33; Admin Dose 18.75 MLS/HR; Start 04/13/17 at 04 :00 Vancomycin HCl 1.5 gm/Sodium Chloride 250 ml @ 83.333 mls/ hr NOW IVPB ; Start 04/13/17 at 11:30; Stop 04/13/17 at 14:29 Vancomycin HCl (Vancocin) 250 ml @ 125 mls/hr Q12H IVPB ; Start 04/14/17 at 01 :00 LIBIA LANDIN NP Apr 13, 2017 11:33
[2017-04-13] MEDS: CEFEPIME 1GM/50 ML (PMX) 50 ML IVPB SCH ×2 (13:23→21:10)
--- NOTE | 2017-04-13 14:09 | CONS ---
Date/Time of Note Date/Time of Note DATE: 04/13/17 TIME: 13:53 Assessment/Plan Assessment/Plan Chief Complaint/Hosp Course IMPRESSION: 1. Paroxysmal atrial fibrillation with rapid ventricular response, now back into sinus rhythm.-maintain in SR. Trop negative x 3 2. Abnormal electrocardiogram, assess for acute coronary syndrome. 3. Respiratory failure, chronic s/p trach, with worsening. 4. Respiratory acidosis. 5. Encephalopathy. 6. Anemia/thrombocytopenia 7. Seizure disorder. Recc: -Tele -serial ecg's -Continue atenolol as tolerated -Continue lovenox -Continue abx's and f/u cx data -Will f/u echo -will consider low dose amio in attempt to maintain SR Problems: Consultation Date/Type/Reason Admit Date/Time Apr 12, 2017 at 11:52 Initial Consult Date 04/12/2017 Type of Consultation: cardiology Reason for Consultation PAF Referring Provider: ROSHNI FABIAN MD Exam/Review of Systems Vital Signs Vitals Vital Signs Date Time Temp Pulse Resp B/P Pulse Ox O2 Delivery O2 Flow Rate FiO2 04/13/17 12:00 65 04/13/17 05:30 18 102/44 97 04/13/17 05:08 35 04/13/17 05:00 Mechanical Ventilator 04/13/17 04:00 99.5 Intake and Output 04/12/17 04/12/17 04/13/17 15:00 23:00 07:00 Intake Total 2800 ml 75 ml 554.125 ml Output Total 260 ml 315 ml 155 ml Balance 2540 ml -240 ml 399.125 ml Exam Review of Systems: CONSTITUTIONAL: No fevers, chills. PULMONARY: No sob CARDIOVASCULAR: No chest pain/palpitations GASTROINTESTINAL: No nausea/vomiting. GENITOURINARY: No hematuria/dysuria. MUSCULOSKELETAL: No myagias/arthalgias. PSYCHIATRIC: The patient denies depression. NEUROLOGIC: No weakness Constitutional: alert Psych: no complaints Head: normocephalic ENMT: mucosa pink and moist Neck: jvd (9 cm water), other (trached), supple Respiratory: diminished breath sounds Cardiovascular: regular rate and rhythm Gastrointestinal: non-tender, soft Musculoskeletal: muscle tone (normal) Extremities: edema (none) Neurological: other (No focal deficits) Results Result Diagram: 04/13/17 0500 04/13/17 0500 Results 24 hrs Laboratory Tests Test 04/12/17 15:10 04/12/17 15:22 04/12/17 16:08 04/12/17 17:43 Bedside Glucose 271 H 196 Blood Gas Specimen Source Blood arterial Arterial Blood Date Drawn 04/12/2017 3:40:38 PM Arterial Blood pH (Temp corrected) 7.333 L Arterial Blood pCO2 (Temp correct) 41.8 Arterial Blood pO2 (Temp corrected) 432.7 H Arterial Blood HCO3 21.7 L Arterial Blood Base Excess -4.0 L Arterial Blood Oxygen Saturation 99.6 Cecil Test ACCEPTAB Arterial Blood Gas Puncture Site Right HEEL Arterial Blood Carboxyhemoglobin 0.3 Arterial Blood Methemoglobin 0.1 Blood Gas A-a O2 Differential 238.5 H Oxyhemoglobin Percent 99.2 H Total Hemoglobin 10.7 L Blood Gas Temperature 37.0 Blood Gas Respiration Rate 16.0 Blood Gas Actual Respiration Rate 19 Blood Gas Modality VENT - AC FiO2 100.0 Blood Gas Tidal Volume 500.0 Blood Gas Low PEEP Setting 0 Blood Gas Notified Whom JLD Blood Gas Notified Time 04/12/2017 3:49:19 PM Lactic Acid Level 1.7 Magnesium Level 2.0 Phenytoin (Dilantin) Level 21.8 *H Valproic Acid (Depakene) Level 19 L Test 04/12/17 19:58 04/12/17 21:01 04/13/17 01:01 04/13/17 01:31 White Blood Count 14.1 #H Red Blood Count 2.85 L Hemoglobin 8.5 L Hematocrit 26.7 L Mean Corpuscular Volume 93.7 Mean Corpuscular Hemoglobin 29.8 Mean Corpuscular Hemoglobin Concent 31.8 L Red Cell Distribution Width 16.9 H Platelet Count 96 L Mean Platelet Volume 9.3 Neutrophils % 75.9 Lymphocytes % 9.4 L Monocytes % 13.7 H Eosinophils % 0.1 Basophils % 0.1 Nucleated Red Blood Cells % 0.0 Neutrophils # 10.7 H Lymphocytes # 1.3 Monocytes # 1.9 H Eosinophils # 0.0 Basophils # 0.0 Nucleated Red Blood Cells # 0.0 Sodium Level 142 Potassium Level 5.0 Chloride Level 101 Carbon Dioxide Level 27 Anion Gap 19 H Blood Urea Nitrogen 49 H Creatinine 0.68 Glucose Level 167 Lactic Acid Level 2.3 *H Calcium Level 8.8 Total Bilirubin 1.0 Direct Bilirubin 0.60 #H Indirect Bilirubin 0.4 Aspartate Amino Transf (AST/SGOT) 66 #H Alanine Aminotransferase (ALT/SGPT) 38 Alkaline Phosphatase 50 Creatine Kinase 59 71 Creatine Kinase Index 4.2 2.7 Creatinine Kinase MB (Mass) 2.46 H 1.90 Troponin I 0.088 0.116 Total Protein 6.3 Albumin 3.3 Globulin 3.00 Albumin/Globulin Ratio 1.10 Bedside Glucose 155 122 Test 04/13/17 04:30 04/13/17 05:00 04/13/17 06:16 04/13/17 07:00 Lactic Acid Level 1.1 White Blood Count 11.3 H Red Blood Count 2.55 L Hemoglobin 7.6 L Hematocrit 23.9 L Mean Corpuscular Volume 93.7 Mean Corpuscular Hemoglobin 29.8 Mean Corpuscular Hemoglobin Concent 31.8 L Red Cell Distribution Width 17.2 H Platelet Count 100 L Mean Platelet Volume 10.4 Neutrophils % 75.2 Lymphocytes % 12.1 L Monocytes % 11.6 H Eosinophils % 0.1 Basophils % 0.1 Nucleated Red Blood Cells % 0.0 Neutrophils # 8.5 H Lymphocytes # 1.4 Monocytes # 1.3 H Eosinophils # 0.0 Basophils # 0.0 Nucleated Red Blood Cells # 0.0 Sodium Level 144 Potassium Level 4.4 Chloride Level 105 Carbon Dioxide Level 25 Anion Gap 18 H Blood Urea Nitrogen 47 H Creatinine 0.90 Glucose Level 131 Hemoglobin A1c 4.7 Calcium Level 8.4 Total Bilirubin 0.4 Direct Bilirubin 0.10 # Indirect Bilirubin 0.3 Aspartate Amino Transf (AST/SGOT) 37 Alanine Aminotransferase (ALT/SGPT) 33 Alkaline Phosphatase 46 Creatine Kinase 74 Creatine Kinase Index 2.0 Creatinine Kinase MB (Mass) 1.49 Troponin I 0.102 Total Protein 5.7 L Albumin 2.9 L Globulin 2.80 Albumin/Globulin Ratio 1.03 Thyroid Stimulating Hormone (TSH) 0.933 Bedside Glucose 136 Blood Gas Specimen Source Blood arterial Arterial Blood Date Drawn 04/13/2017 8:45:34 AM Arterial Blood pH (Temp corrected) 7.426 Arterial Blood pCO2 (Temp correct) 36.0 Arterial Blood pO2 (Temp corrected) 70.9 L Arterial Blood HCO3 23.1 Arterial Blood Base Excess -1.0 Arterial Blood Oxygen Saturation 93.6 L Cecil Test ACCEPTAB Arterial Blood Gas Puncture Site Right Radial Arterial Blood Carboxyhemoglobin 0.6 Arterial Blood Methemoglobin 0.2 Blood Gas A-a O2 Differential 100.7 H Oxyhemoglobin Percent 92.9 L Total Hemoglobin 8.7 L Blood Gas Temperature 37.0 Blood Gas Respiration Rate 16.0 Blood Gas Actual Respiration Rate 20 Blood Gas Modality VENT - AC FiO2 30.0 Blood Gas Tidal Volume 500.0 Blood Gas Low PEEP Setting 5.0 Blood Gas Notified Whom DT Blood Gas Notified Time 04/13/2017 9:11:18 AM Test 04/13/17 09:18 04/13/17 13:36 Bedside Glucose 165 133 Medications Medications Current Medications Ondansetron HCl (Zofran Inj) 4 mg Q6H PRN IV NAUSEA AND/OR VOMITING; Start at 15:00 Acetaminophen (Tylenol Liquid) 650 mg Q6H PRN PO PAIN LEVEL 1-3 OR FEVER; Start 04/12/17 at 15:00 Morphine Sulfate (morphine) 2 mg Q4H PRN IV PAIN LEVEL 7-10; Start 04/12/17 at 15:00 Famotidine (Pepcid Iv) 20 mg Q12 IV Last administered on 04/13/17 09:20; Admin Dose 20 MG; Start 04/12/17 at 21:00 Phenytoin (Dilantin Susp (Ped)) 200 mg Q12 GTB ; Start 04/12/17 at 21:00; Status Future hold Valproic Acid (Depakene) 250 mg BID GTB Last administered on 04/13/17 09:20; Admin Dose 250 MG; Start 04/12/17 at 21:00 Insulin Aspart (Novolog Insulin Pen) NOVOLOG *MILD* ALGORI... Q4 SC Last administered on 04/13/17 09:34; Admin Dose 1 UNIT; Start 04/12/17 at 17:00 Miscellaneous Information 1 ea NOTE XX ; Start 04/12/17 at 15:30 Glucose (Glutose) 15 gm Q15M PRN PO DECREASED GLUCOSE; Start 04/12/17 at 15:30 Glucose (Glutose) 22.5 gm Q15M PRN PO DECREASED GLUCOSE; Start 04/12/17 at 15: 30 Dextrose (D50w Syringe) 25 ml Q15M PRN IV DECREASED GLUCOSE; Start 04/12/17 at 15:30 Dextrose (D50w Syringe) 50 ml Q15M PRN IV DECREASED GLUCOSE; Start 04/12/17 at 15:30 Glucagon (Glucagen) 1 mg Q15M PRN IM DECREASED GLUCOSE; Start 04/12/17 at 15: 30 Glucose (Glutose) 15 gm Q15M PRN BUCCAL DECREASED GLUCOSE; Start 04/12/17 at 15:30 Metoprolol Tartrate (Lopressor) 5 mg Q4H PRN IV HR>110 Hold SBP<100; Start at 15:30 Atenolol 12.5 mg 12.5 mg BID GTB Last administered on 04/12/17 21:03; Admin Dose 12.5 MG; Start 04/12/17 at 21:00 Midazolam HCl (Versed) 50 ml @ 1 mls/hr TITRATE IV ; Start 04/12/17 at 15:30 Enoxaparin Sodium 40 mg 40 mg DAILY SC ; Start 04/13/17 at 09:00 Sodium Chloride 1,000 ml @ 75 mls/hr [id number] IV Last administered on 13:31; Admin Dose 75 MLS/HR; Start 04/12/17 at 23:30 Norepinephrine 16 mg/Dextrose 500 ml @ 1.87 mls/hr TITRATE IV Last administered on 04/13/17 08:33; Admin Dose 18.75 MLS/HR; Start 04/13/17 at 04 :00 Vancomycin HCl 1.5 gm/Sodium Chloride 250 ml @ 83.333 mls/ hr NOW IVPB ; Start 04/13/17 at 11:30; Stop 04/13/17 at 14:29 Vancomycin HCl 250 ml @ 125 mls/hr Q12H IVPB ; Start 04/14/17 at 01:00 Cefepime HCl (Maxipime 1gm/50 ml (Pmx)) 50 ml @ 100 mls/hr Q12 IVPB Last administered on 04/13/17 13:23; Admin Dose 100 MLS/HR; Start 04/13/17 at 13: 00 DESIREE VALDEZ 18, 2017 14:06
--- NOTE | 2017-04-13 15:05 | CONS ---
DATE OF ADMISSION: 04/12/2017 DATE OF CONSULTATION: EARS, NOSE AND THROAT CONSULTATION HISTORY OF PRESENT ILLNESS: Roldan Kelly is a 81-year-old gentleman with a history of respirato ry failure and encephalopathy. His trachea is positional and ENT was consulted to evaluate this. PAST MEDICAL HISTORY: Respiratory failure, CHF, atherosclerotic heart disease, hypertension, enceph alopathy, diabetes, hyperlipidemia, COPD, epilepsy, BPH, chronic kidney disease, gastroesophageal re flux disease. PAST SURGICAL HISTORY: Tracheostomy, percutaneous endoscopic gastrostomy tube. DRUG ALLERGIES: NONE. MEDICATIONS: 1. Ativan. 2. Colace. 3. Dilantin. 4. Iron. 5. Singulair. 6. Tricor. 7. Urecholine. 8. Valproic acid. 9. Xopenex. SOCIAL HISTORY: Positive for tobacco use in the distant past. Negative for alcohol or drug abuse. FAMILY HISTORY: Negative for any heart, lung, kidney failure, or liver disease. REVIEW OF SYSTEMS: Patient is ventilated and is not a good historian, but his son is there to give history. PHYSICAL EXAMINATION: Today, the septum is mildly deviated. There is no mucosal edema or erythema. No purulent secretions, polyps or active bacterial infection. The oral cavity and oropharynx show ed tongue and floor of mouth are normal. Oropharynx is clear. Neck reveals no lymphadenopathy or t hyromegaly. The tracheostomy tube is not all that stable and held in place with gauze packing on ei ther side of the tube. Endoscopy through the tracheostomy tube shows the tip of the tube up against the wall of the tracheostomy. I can get around and see down towards the tyron, but the orifice of the tube is somewhat blocked. At this point, central supply did not have any 6 XLT proximal trachs and these need to be ordered. IMPRESSION: Respiratory failure, tracheostomy won't function. PLAN: At this point, from an ENT standpoint, the tracheostomy tube needs to be replaced with a more appropriate tube. With that being said, once it is ordered, I can come back and replace it at that time. Dictated By: REUBEN FERNANDO/DAVID Conf#: [id number] DID#: [id number]
--- NOTE | 2017-04-13 18:40 | RADRPT ---
Echocardiogram Report Patient Name: AKBAR PETTY Gender: Male Date: 1935 Study Date: 13-Apr-2017 Sagger Preparer: EMMA Location: 105 Ref. Physician: AAMIR ZUNIGA Quality: Good Procedures: Transthoracic echocardiogram with complete 2D, M-Mode, and doppler examination. Indications: Evaluate Left Ventricular function. 2D/M Mode Doppler Measurement Value Normal Ranges Measurement Value Normal Ranges AoR Diam MM 3.1 cm TAMY Vmax 2.1 cm2 LA/Ao MM 1.4 TAMY VTI 2.1 cm2 LA Dimen MM 4.4 cm AV Mean Karl 1.3 m/sec LVIDd 2D 4.8 3.5 - 5.6 cm AV Mean PG 7.6 mmHg LVIDs 2D 3.4 2.1 - 4.1 cm AV Peak Karl 1.8 m/sec LVPWd 2D 0.9 0.6 - 1.1 cm AV Peak PG 13.2 mmHg IVSd 2D 1.1 0.6 - 1.1 cm AV VTI 39.6 cm EDV 2D 107.0 cm3 AI Peak PG 55.7 mmHg ESV 2D 40.5 cm3 AI Peak Karl 3.7 m/sec EF 2D 55.0 50.0 - 65.0 % AI PHT 335.1 msec LVOT Diam 2.0 cm LVOT Mean Karl 0.8 m/sec LVOT Mean PG 2.7 mmHg LVOT Peak Karl 1.1 m/sec LVOT Peak PG 5.2 mmHg LVOT VTI 25.1 cm MV E Peak Karl 1.0 m/sec MV A Peak Karl 0.7 m/sec MV E/A 1.5 MV Decel Time 153 msec MV Decel Peñuelas 6 MV E/A 1.5 TR Peak Karl 3.4 m/sec TR Peak PG 47.1 mmHg RVSP 55.0 mmHg RA Pressure 8.0 Findings Left Ventricle: Normal left ventricular systolic function. Normal left ventricular cavity size. Normal left ventricular wall thickness. Ejection fraction is visually estimated at 55 %. Abnormal Diastolic Function. Right Ventricle: Normal right ventricular size. Normal right ventricular systolic function. Left Atrium: There is moderate enlargement of left atrium. Right Atrium: The right atrium is normal in size. Mitral Valve: Normal appearance of the mitral valve. Mild mitral annular calcification. Mild mitral valve regurgitation. Aortic Valve: No significant aortic stenosis with mild insufficiency. Aortic cusps appear mildly calcified. Mild to moderate aortic valve regurgitation. Tricuspid Valve: Normal appearance of the tricuspid valve. Estimated peak PA systolic pressure 55 mmHg. There is moderate tricuspid regurgitation. Pulmonic Valve: Normal pulmonic valve appearance. There is trace pulmonic regurgitation. Pericardium: Normal pericardium with no significant pericardial effusion. Aorta: Normal aortic root. IVC: Inferior vena cava without respiratory collapse, however, patient on ventilator. Conclusions 1.Normal left ventricular systolic function. Normal left ventricular cavity size. Normal left ventricular wall thickness. Ejection fraction is visually estimated at 55 %. Abnormal Diastolic Function. 2.There is moderate enlargement of left atrium. 3.Normal appearance of the mitral valve. Mild mitral annular calcification. Mild mitral valve regurgitation. 4.No significant aortic stenosis with mild insufficiency. Aortic cusps appear mildly calcified. Mild to moderate aortic valve regurgitation. 5.Normal appearance of the tricuspid valve. Estimated peak PA systolic pressure 55 mmHg. There is moderate tricuspid regurgitation. 6.Normal pulmonic valve appearance. There is trace pulmonic regurgitation. Electronically Signed By: Enio Redd 13-Apr-2017 18:39:06 -0800 Patient Name: AKBAR PETTY Study Date: 13-Apr-2017 [id number]
[2017-04-13] MEDS: AMIODARONE 200 MG TAB PO SCH (21:10)
[2017-04-13] MEDS: PHENYTOIN (25 MG/ML PO SYG) GTB SCH (21:10)
[2017-04-14] VITALS (67 sets, daily range): BP systolic 98–147; BP diastolic 32–107; PULSE 55–70; RESP 13–29
[2017-04-14] MEDS: INSULIN ASPART [NOVOLOG] 3 ML PEN SC SCH ×6 (01:00→21:23)
[2017-04-14] MEDS ORDERED: VANCOMYCIN 1 GM in NS 250 ML IVPB SCH (01:00)
[2017-04-14 04:34] LABS: ABNORMAL IP MESSAGE 1; BASOPHILS % 0.4 % (0.0-2.0); EOSINOPHILS # 0.1 10^3/ul (0.0-0.5); EOSINOPHILS % 2.4 % (0.0-7.0); HEMATOCRIT 23.7 % (42.0-52.0); HEMOGLOBIN 7.8 g/dl (14.0-18.0); LYMPHOCYTES # 1.1 10^3/ul (0.8-2.9); LYMPHOCYTES % 19.7 % (15.0-51.0); MEAN CORPUSCULAR HEMOGLOBIN 29.7 pg (29.0-33.0); MEAN CORPUSCULAR HGB CONC 32.9 g/dl (32.0-37.0); MEAN CORPUSCULAR VOLUME 90.1 fl (82.0-101.0); MEAN PLATELET VOLUME 10.6 fl (7.4-10.4); MONOCYTE # 0.6 10^3/ul (0.3-0.9); MONOCYTES % 10.9 % (0.0-11.0); NEUTROPHIL # 3.6 10^3/ul (1.6-7.5); NEUTROPHILS % 65.9 % (39.0-77.0); PLATELET COUNT 71 10^3/UL (140-415); POSITIVE DIFF @See below; RED BLOOD COUNT 2.63 10^6/ul (4.70-6.10); RED CELL DISTRIBUTION WIDTH 18.9 % (11.5-14.5); WHITE BLOOD COUNT 5.4 10^3/ul (4.8-10.8)
[2017-04-14 05:03] LABS: CALCIUM 7.9 mg/dl (8.4-10.2); CREATININE 0.66 mg/dl (0.61-1.24); POTASSIUM 4.1 mmol/L (3.5-5.1)
[2017-04-14] MEDS: SOD CHLORIDE 0.9% 1,000 ML IV SCH ×3 (06:41→21:17)
[2017-04-14 08:22] LABS: ADD UMIC YES; UR ASCORBIC ACID 40 mg/dL (NEGATIVE); UR BILIRUBIN (Dip) NEGATIVE (NEGATIVE); UR BLOOD (Dip) NEGATIVE (NEGATIVE); UR CLARITY SLIGHTLY CLOUDY (CLEAR); UR COLOR AMBER (YELLOW); UR GLUCOSE (Dip) NEGATIVE (NEGATIVE); UR KETONES (Dip) TRACE mg/dL (NEGATIVE); UR LEUKOCYTE ESTERASE (Dip) 1+ Leu/ul (NEGATIVE); UR NITRITE (Dip) NEGATIVE (NEGATIVE); UR RBC 7 /HPF (0-5); UR SPECIFIC GRAVITY (Dip) 1.019 (1.003-1.030); UR TOTAL PROTEIN (Dip) NEGATIVE (NEGATIVE); UR UROBILINOGEN (Dip) NEGATIVE (NEGATIVE)
[2017-04-14] MEDS: FAMOTIDINE 20 MG INJ IV SCH ×2 (08:33→20:28)
[2017-04-14] MEDS: ATENOLOL 25 MG TAB GTB SCH ×2 (08:33→20:28)
[2017-04-14] MEDS: CEFEPIME 1GM/50 ML (PMX) 50 ML IVPB SCH ×2 (08:33→20:24)
[2017-04-14] MEDS: VALPROIC ACID 250 MG CAP GTB SCH ×2 (08:34→20:28)
[2017-04-14] MEDS: AMIODARONE 200 MG TAB PO SCH ×2 (08:34→20:28)
[2017-04-14] MEDS: ENOXAPARIN 40 MG/0.4 ML SYG SC SCH (09:00)
--- NOTE | 2017-04-14 11:47 | CONS ---
Date/Time of Note Date/Time of Note DATE: 04/14/17 TIME: 11:42 Assessment/Plan Assessment/Plan Additional Assessment/Plan Ventilator setting; AC of 16, tidal volume 500, PEEP of 0, 30% FiO2. Assessment and recommendations; 1. Patient with a history of chronic respiratory failure admitted for gram- positive sepsis clinically improving. 2. Advanced dementia. 3. History of cardiac arrhythmia. Continue current supportive care. Prognosis is very poor. Consultation Date/Type/Reason Admit Date/Time Apr 12, 2017 at 11:52 Type of Consultation: Pulmonary/critical care Referring Provider: ROSHNI FABIAN MD 24 HR Interval Summary Free Text/Dictation Patient's condition remains stable. Patient remains unresponsive to any commands but remains awake. Has remained hemodynamically stable. General exam; elderly male, on ventilator via tracheostomy, awake, currently in no distress. Unresponsive to any commands. Exam/Review of Systems Vital Signs Vitals Vital Signs Date Time Temp Pulse Resp B/P Pulse Ox O2 Delivery O2 Flow Rate FiO2 04/14/17 09:45 59 16 127/43 94 Mechanical Ventilator 04/14/17 08:00 30 04/14/17 08:00 97.5 Intake and Output 04/13/17 04/13/17 04/14/17 15:00 23:00 07:00 Intake Total 724.75 ml 1248.75 ml 1285 ml Output Total 200 ml 200 ml 140 ml Balance 524.75 ml 1048.75 ml 1145 ml Exam HEENT exam; supple neck, tracheostomy in place. Insertion site is clean. Patient has multiple carious teeth. Pupils are small bilaterally. No neck masses. Chest exam; diminished but clear breath sounds. S1-S2 audible, no murmurs. Irregular rhythm. Abdomen exam; soft, G-tube in place. No organomegaly. Bowel sounds audible. Extremity exam; no edema. GLASS SCULLION exam; patient remains awake but unresponsive to any commands. Results Result Diagram: 04/14/17 0400 04/14/17 0400 Results 24 hrs Laboratory Tests Test 04/13/17 13:36 04/13/17 17:30 04/13/17 21:31 04/14/17 01:00 Bedside Glucose 133 186 137 Urine Color LENI Urine Clarity SLIGHTLY CLOUDY A Urine pH 5.0 Urine Specific [place] 1.019 Urine Ketones TRACE A Urine Nitrite NEGATIVE Urine Bilirubin NEGATIVE Urine Urobilinogen NEGATIVE Urine Leukocyte Esterase 1+ H Urine Microscopic RBC 7 H Urine Microscopic WBC 21 H Urine Hemoglobin NEGATIVE Urine Glucose NEGATIVE Urine Total Protein NEGATIVE Test 04/14/17 01:14 04/14/17 04:00 04/14/17 06:14 04/14/17 08:49 Bedside Glucose 128 171 187 White Blood Count 5.4 # Red Blood Count 2.63 L Hemoglobin 7.8 L Hematocrit 23.7 L Mean Corpuscular Volume 90.1 Mean Corpuscular Hemoglobin 29.7 Mean Corpuscular Hemoglobin Concent 32.9 Red Cell Distribution Width 18.9 H Platelet Count 71 #L Mean Platelet Volume 10.6 H Neutrophils % 65.9 Lymphocytes % 19.7 Monocytes % 10.9 Eosinophils % 2.4 Basophils % 0.4 Nucleated Red Blood Cells % 0.0 Neutrophils # 3.6 Lymphocytes # 1.1 Monocytes # 0.6 Eosinophils # 0.1 Basophils # 0.0 Nucleated Red Blood Cells # 0.0 Sodium Level 146 H Potassium Level 4.1 Chloride Level 113 H Carbon Dioxide Level 23 Anion Gap 14 Blood Urea Nitrogen 50 H Creatinine 0.66 Glucose Level 130 Calcium Level 7.9 L Medications Medications Current Medications Ondansetron HCl (Zofran Inj) 4 mg Q6H PRN IV NAUSEA AND/OR VOMITING; Start at 15:00 Acetaminophen (Tylenol Liquid) 650 mg Q6H PRN PO PAIN LEVEL 1-3 OR FEVER; Start 04/12/17 at 15:00 Morphine Sulfate (morphine) 2 mg Q4H PRN IV PAIN LEVEL 7-10; Start 04/12/17 at 15:00 Famotidine (Pepcid Iv) 20 mg Q12 IV Last administered on 04/14/17 08:33; Admin Dose 20 MG; Start 04/12/17 at 21:00 Phenytoin (Dilantin Susp (Ped)) 200 mg Q12 GTB Last administered on 04/13/17 21:10; Admin Dose 200 MG; Start 04/12/17 at 21:00; Status Future hold Valproic Acid (Depakene) 250 mg BID GTB Last administered on 04/14/17 08:34; Admin Dose 250 MG; Start 04/12/17 at 21:00 Insulin Aspart (Novolog Insulin Pen) NOVOLOG *MILD* ALGORI... Q4 SC Last administered on 04/14/17 08:53; Admin Dose 2 UNIT; Start 04/12/17 at 17:00 Miscellaneous Information 1 ea NOTE XX ; Start 04/12/17 at 15:30 Glucose (Glutose) 15 gm Q15M PRN PO DECREASED GLUCOSE; Start 04/12/17 at 15:30 Glucose (Glutose) 22.5 gm Q15M PRN PO DECREASED GLUCOSE; Start 04/12/17 at 15: 30 Dextrose (D50w Syringe) 25 ml Q15M PRN IV DECREASED GLUCOSE; Start 04/12/17 at 15:30 Dextrose (D50w Syringe) 50 ml Q15M PRN IV DECREASED GLUCOSE; Start 04/12/17 at 15:30 Glucagon (Glucagen) 1 mg Q15M PRN IM DECREASED GLUCOSE; Start 04/12/17 at 15: 30 Glucose (Glutose) 15 gm Q15M PRN BUCCAL DECREASED GLUCOSE; Start 04/12/17 at 15:30 Metoprolol Tartrate (Lopressor) 5 mg Q4H PRN IV HR>110 Hold SBP<100; Start at 15:30 Atenolol 12.5 mg 12.5 mg BID GTB Last administered on 04/14/17 08:33; Admin Dose 12.5 MG; Start 04/12/17 at 21:00 Midazolam HCl (Versed) 50 ml @ 1 mls/hr TITRATE IV ; Start 04/12/17 at 15:30 Enoxaparin Sodium 40 mg 40 mg DAILY SC ; Start 04/13/17 at 09:00 Sodium Chloride 1,000 ml @ 75 mls/hr [id number] IV Last administered on 06:41; Admin Dose 75 MLS/HR; Start 04/12/17 at 23:30 Norepinephrine 16 mg/Dextrose 500 ml @ 1.87 mls/hr TITRATE IV Last administered on 04/13/17 08:33; Admin Dose 18.75 MLS/HR; Start 04/13/17 at 04 :00 Cefepime HCl (Maxipime 1gm/50 ml (Pmx)) 50 ml @ 100 mls/hr Q12 IVPB Last administered on 04/14/17 08:33; Admin Dose 100 MLS/HR; Start 04/13/17 at 13: 00 Amiodarone HCl 200 mg 200 mg BID PO Last administered on 04/14/17t 08:34; Admin Dose 200 MG; Start 04/13/17 at 21:00 Vancomycin HCl (Vancocin) 250 ml @ 125 mls/hr Q24H IVPB ; Start 04/14/17 at 14 :00 LONDON LICEA Apr 14, 2017 11:47
--- NOTE | 2017-04-14 12:20 | CONS ---
Date/Time of Note Date/Time of Note DATE: 04/14/17 TIME: 12:18 Assessment/Plan Assessment/Plan Chief Complaint/Hosp Course IMPRESSION: 1. Paroxysmal atrial fibrillation with rapid ventricular response, now back into sinus rhythm.-maintains in SR. Trop negative x 3 2. Abnormal electrocardiogram, assess for acute coronary syndrome. 3. Respiratory failure, chronic s/p trach, with worsening. 4. Respiratory acidosis. 5. Encephalopathy. 6. Anemia/thrombocytopenia 7. Seizure disorder. Recc: -Tele -serial ecg's -Continue atenolol as tolerated -Continue lovenox as tolerated only given anemia/low platelets -Continue abx's and f/u cx data -Contine PO amio in attempt to maintain SR -pnding trach change s/p ENT eval Problems: Consultation Date/Type/Reason Admit Date/Time Apr 12, 2017 at 11:52 Initial Consult Date 04/12/2017 Type of Consultation: cardiology Reason for Consultation PAF Referring Provider: ROSHNI FABIAN MD Exam/Review of Systems Vital Signs Vitals Vital Signs Date Time Temp Pulse Resp B/P Pulse Ox O2 Delivery O2 Flow Rate FiO2 04/14/17 09:45 59 16 127/43 94 Mechanical Ventilator 04/14/17 08:00 30 04/14/17 08:00 97.5 Intake and Output 04/13/17 04/13/17 04/14/17 15:00 23:00 07:00 Intake Total 724.75 ml 1248.75 ml 1285 ml Output Total 200 ml 200 ml 140 ml Balance 524.75 ml 1048.75 ml 1145 ml Exam Review of Systems: CONSTITUTIONAL: No fevers, chills. PULMONARY: trached CARDIOVASCULAR: No chest pain/palpitations GASTROINTESTINAL: No nausea/vomiting. GENITOURINARY: No hematuria/dysuria. MUSCULOSKELETAL: No myagias/arthalgias. PSYCHIATRIC: The patient denies depression. NEUROLOGIC: encephalopathic Constitutional: alert Psych: confusion Head: normocephalic ENMT: other (trached) Respiratory: other (upper airway rhonchi) Cardiovascular: regular rate and rhythm Gastrointestinal: soft Musculoskeletal: muscle tone (normal) Extremities: edema (trace at feet only) Neurological: confused Results Result Diagram: 04/14/17 0400 04/14/17 0400 Results 24 hrs Laboratory Tests Test 04/13/17 13:36 04/13/17 17:30 04/13/17 21:31 04/14/17 01:00 Bedside Glucose 133 186 137 Urine Color LENI Urine Clarity SLIGHTLY CLOUDY A Urine pH 5.0 Urine Specific [place] 1.019 Urine Ketones TRACE A Urine Nitrite NEGATIVE Urine Bilirubin NEGATIVE Urine Urobilinogen NEGATIVE Urine Leukocyte Esterase 1+ H Urine Microscopic RBC 7 H Urine Microscopic WBC 21 H Urine Hemoglobin NEGATIVE Urine Glucose NEGATIVE Urine Total Protein NEGATIVE Test 04/14/17 01:14 04/14/17 04:00 04/14/17 06:14 04/14/17 08:49 Bedside Glucose 128 171 187 White Blood Count 5.4 # Red Blood Count 2.63 L Hemoglobin 7.8 L Hematocrit 23.7 L Mean Corpuscular Volume 90.1 Mean Corpuscular Hemoglobin 29.7 Mean Corpuscular Hemoglobin Concent 32.9 Red Cell Distribution Width 18.9 H Platelet Count 71 #L Mean Platelet Volume 10.6 H Neutrophils % 65.9 Lymphocytes % 19.7 Monocytes % 10.9 Eosinophils % 2.4 Basophils % 0.4 Nucleated Red Blood Cells % 0.0 Neutrophils # 3.6 Lymphocytes # 1.1 Monocytes # 0.6 Eosinophils # 0.1 Basophils # 0.0 Nucleated Red Blood Cells # 0.0 Sodium Level 146 H Potassium Level 4.1 Chloride Level 113 H Carbon Dioxide Level 23 Anion Gap 14 Blood Urea Nitrogen 50 H Creatinine 0.66 Glucose Level 130 Calcium Level 7.9 L Medications Medications Current Medications Ondansetron HCl (Zofran Inj) 4 mg Q6H PRN IV NAUSEA AND/OR VOMITING; Start at 15:00 Acetaminophen (Tylenol Liquid) 650 mg Q6H PRN PO PAIN LEVEL 1-3 OR FEVER; Start 04/12/17 at 15:00 Morphine Sulfate (morphine) 2 mg Q4H PRN IV PAIN LEVEL 7-10; Start 04/12/17 at 15:00 Famotidine (Pepcid Iv) 20 mg Q12 IV Last administered on 04/14/17 08:33; Admin Dose 20 MG; Start 04/12/17 at 21:00 Phenytoin (Dilantin Susp (Ped)) 200 mg Q12 GTB Last administered on 04/13/17 21:10; Admin Dose 200 MG; Start 04/12/17 at 21:00; Status Future hold Valproic Acid (Depakene) 250 mg BID GTB Last administered on 04/14/17 08:34; Admin Dose 250 MG; Start 04/12/17 at 21:00 Insulin Aspart (Novolog Insulin Pen) NOVOLOG *MILD* ALGORI... Q4 SC Last administered on 04/14/17 08:53; Admin Dose 2 UNIT; Start 04/12/17 at 17:00 Miscellaneous Information 1 ea NOTE XX ; Start 04/12/17 at 15:30 Glucose (Glutose) 15 gm Q15M PRN PO DECREASED GLUCOSE; Start 04/12/17 at 15:30 Glucose (Glutose) 22.5 gm Q15M PRN PO DECREASED GLUCOSE; Start 04/12/17 at 15: 30 Dextrose (D50w Syringe) 25 ml Q15M PRN IV DECREASED GLUCOSE; Start 04/12/17 at 15:30 Dextrose (D50w Syringe) 50 ml Q15M PRN IV DECREASED GLUCOSE; Start 04/12/17 at 15:30 Glucagon (Glucagen) 1 mg Q15M PRN IM DECREASED GLUCOSE; Start 04/12/17 at 15: 30 Glucose (Glutose) 15 gm Q15M PRN BUCCAL DECREASED GLUCOSE; Start 04/12/17 at 15:30 Metoprolol Tartrate (Lopressor) 5 mg Q4H PRN IV HR>110 Hold SBP<100; Start at 15:30 Atenolol 12.5 mg 12.5 mg BID GTB Last administered on 04/14/17 08:33; Admin Dose 12.5 MG; Start 04/12/17 at 21:00 Midazolam HCl (Versed) 50 ml @ 1 mls/hr TITRATE IV ; Start 04/12/17 at 15:30 Enoxaparin Sodium 40 mg 40 mg DAILY SC ; Start 04/13/17 at 09:00 Sodium Chloride 1,000 ml @ 75 mls/hr [id number] IV Last administered on 06:41; Admin Dose 75 MLS/HR; Start 04/12/17 at 23:30 Norepinephrine 16 mg/Dextrose 500 ml @ 1.87 mls/hr TITRATE IV Last administered on 04/13/17 08:33; Admin Dose 18.75 MLS/HR; Start 04/13/17 at 04 :00 Cefepime HCl (Maxipime 1gm/50 ml (Pmx)) 50 ml @ 100 mls/hr Q12 IVPB Last administered on 04/14/17 08:33; Admin Dose 100 MLS/HR; Start 04/13/17 at 13: 00 Amiodarone HCl 200 mg 200 mg BID PO Last administered on 04/14/17 08:34; Admin Dose 200 MG; Start 04/13/17 at 21:00 Vancomycin HCl (Vancocin) 250 ml @ 125 mls/hr Q24H IVPB ; Start 04/14/17 at 14 :00 DESIREE VALDEZ Apr 14, 2017 12:20
--- NOTE | 2017-04-14 12:33 | CONS ---
Date/Time of Note Date/Time of Note DATE: 04/14/17 TIME: 12:28 Assessment/Plan Assessment/Plan Chief Complaint/Hosp Course ID PROGRESS NOTE CURRENT ABX: DAY # =>Vanco IV #3 + Cefepime #3 24H INTERVAL SUMMARY * Non-communicative, opens eyes OFF PRESSORS, NO FEVERS, WBC NORMALIZED * Brain CT: Atrophy chronic microischemia (+)Paranasal sinus disease * CXRs: No evidence PNA or CHF reported -> 04/12/18 CXR IMPRESSION:1. Cardiomegaly with mild bibasilar atelectasis.2. Prior CABG. * MICRO REVIEWED: (+)MRSA nares * Kelvin: 04/12/17-1100 Source: BLOOD Sp Descrip: Microbiology BLOOD CULTURE Preliminary BLOOD CULTURE Preliminary Organism 1 STAPHYLOCOCCUS SPECIES PHYSICAL EXAMINATION: GENERAL: VSS, afebrile, NAD HEENT: Unremarkable NECK: Supple, trach midline CHEST: Equal chest rise bilaterally, without dyspnea on observation HEART: RRR ABDOMEN: Soft, NT, ND : FC, clear yellow urine EXT: Warm, no edemia SKIN: No rash, no diaphoresis ID ASSESSMENT: 81 yo M PMHx dementia->CVA w/SZs disorder, CAD, CABG, VDRF w/Trach/Peg admit [facility] ICU: 1. Sepsis on admission w/lactic acid 3.0-> 2.3, leukocytosis 14.1 & left shift, tachycardia, acute encephalopathy => work up in process * UA / Urine Cx -> order in computer reads "Active" * 04/12/17 BCx (+) GPC 1/2 bottles preliminary = STAPHYLOCOCCUS SPECIES, possible contaminant, no invasives lines present 2. Acute hypoxic respiratory failure; chronic trach 3. Atrial fibrillation with rapid ventricular response-> resolved 4. Anemia - symptomatic 5. CAD, hx of remote CABG & CHF -> r/o ACS 6. Dysphagia with G-tube 7. HTN 8. BPH 9. Paranasal sinus disease w/(+)MRSA nares ( +)MRSA ABX ALLERGIES: None to ABX INVASIVES: PIV CURRENT ABX: TOTAL ABX DAY #3=> Vanco IV + Cefepime ID RECOMMENDATIONS/PLAN: 1. Continue current ABX, ADD Bactroban bilateral nares 2. Await final results urine culture still pending . Problems: Consultation Date/Type/Reason Admit Date/Time Apr 12, 2017 at 11:52 Referring Provider: ROSHNI FABIAN MD Exam/Review of Systems Vital Signs Vitals Vital Signs Date Time Temp Pulse Resp B/P Pulse Ox O2 Delivery O2 Flow Rate FiO2 04/14/17 09:45 59 16 127/43 94 Mechanical Ventilator 04/14/17 08:00 30 04/14/17 08:00 97.5 Intake and Output 04/13/17 04/13/17 04/14/17 15:00 23:00 07:00 Intake Total 724.75 ml 1248.75 ml 1285 ml Output Total 200 ml 200 ml 140 ml Balance 524.75 ml 1048.75 ml 1145 ml Results Result Diagram: 04/14/17 0400 04/14/17 0400 Results 24 hrs Laboratory Tests Test 04/13/17 13:36 04/13/17 17:30 04/13/17 21:31 04/14/17 01:00 Bedside Glucose 133 186 137 Urine Color LENI Urine Clarity SLIGHTLY CLOUDY A Urine pH 5.0 Urine Specific [place] 1.019 Urine Ketones TRACE A Urine Nitrite NEGATIVE Urine Bilirubin NEGATIVE Urine Urobilinogen NEGATIVE Urine Leukocyte Esterase 1+ H Urine Microscopic RBC 7 H Urine Microscopic WBC 21 H Urine Hemoglobin NEGATIVE Urine Glucose NEGATIVE Urine Total Protein NEGATIVE Test 04/14/17 01:14 04/14/17 04:00 04/14/17 06:14 04/14/17 08:49 Bedside Glucose 128 171 187 White Blood Count 5.4 # Red Blood Count 2.63 L Hemoglobin 7.8 L Hematocrit 23.7 L Mean Corpuscular Volume 90.1 Mean Corpuscular Hemoglobin 29.7 Mean Corpuscular Hemoglobin Concent 32.9 Red Cell Distribution Width 18.9 H Platelet Count 71 #L Mean Platelet Volume 10.6 H Neutrophils % 65.9 Lymphocytes % 19.7 Monocytes % 10.9 Eosinophils % 2.4 Basophils % 0.4 Nucleated Red Blood Cells % 0.0 Neutrophils # 3.6 Lymphocytes # 1.1 Monocytes # 0.6 Eosinophils # 0.1 Basophils # 0.0 Nucleated Red Blood Cells # 0.0 Sodium Level 146 H Potassium Level 4.1 Chloride Level 113 H Carbon Dioxide Level 23 Anion Gap 14 Blood Urea Nitrogen 50 H Creatinine 0.66 Glucose Level 130 Calcium Level 7.9 L Medications Medications Current Medications Ondansetron HCl (Zofran Inj) 4 mg Q6H PRN IV NAUSEA AND/OR VOMITING; Start at 15:00 Acetaminophen (Tylenol Liquid) 650 mg Q6H PRN PO PAIN LEVEL 1-3 OR FEVER; Start 04/12/17 at 15:00 Morphine Sulfate (morphine) 2 mg Q4H PRN IV PAIN LEVEL 7-10; Start 04/12/17 at 15:00 Famotidine (Pepcid Iv) 20 mg Q12 IV Last administered on 04/14/17 08:33; Admin Dose 20 MG; Start 04/12/17 at 21:00 Phenytoin (Dilantin Susp (Ped)) 200 mg Q12 GTB Last administered on 04/13/17 21:10; Admin Dose 200 MG; Start 04/12/17 at 21:00; Status Future hold Valproic Acid (Depakene) 250 mg BID GTB Last administered on 04/14/17 08:34; Admin Dose 250 MG; Start 04/12/17 at 21:00 Insulin Aspart (Novolog Insulin Pen) NOVOLOG *MILD* ALGORI... Q4 SC Last administered on 04/14/17 08:53; Admin Dose 2 UNIT; Start 04/12/17 at 17:00 Miscellaneous Information 1 ea NOTE XX ; Start 04/12/17 at 15:30 Glucose (Glutose) 15 gm Q15M PRN PO DECREASED GLUCOSE; Start 04/12/17 at 15:30 Glucose (Glutose) 22.5 gm Q15M PRN PO DECREASED GLUCOSE; Start 04/12/17 at 15: 30 Dextrose (D50w Syringe) 25 ml Q15M PRN IV DECREASED GLUCOSE; Start 04/12/17 at 15:30 Dextrose (D50w Syringe) 50 ml Q15M PRN IV DECREASED GLUCOSE; Start 04/12/17 at 15:30 Glucagon (Glucagen) 1 mg Q15M PRN IM DECREASED GLUCOSE; Start 04/12/17 at 15: 30 Glucose (Glutose) 15 gm Q15M PRN BUCCAL DECREASED GLUCOSE; Start 04/12/17 at 15:30 Metoprolol Tartrate (Lopressor) 5 mg Q4H PRN IV HR>110 Hold SBP<100; Start at 15:30 Atenolol 12.5 mg 12.5 mg BID GTB Last administered on 04/14/17 08:33; Admin Dose 12.5 MG; Start 04/12/17 at 21:00 Midazolam HCl (Versed) 50 ml @ 1 mls/hr TITRATE IV ; Start 04/12/17 at 15:30 Enoxaparin Sodium 40 mg 40 mg DAILY SC ; Start 04/13/17 at 09:00 Sodium Chloride 1,000 ml @ 75 mls/hr [id number] IV Last administered on 06:41; Admin Dose 75 MLS/HR; Start 04/12/17 at 23:30 Norepinephrine 16 mg/Dextrose 500 ml @ 1.87 mls/hr TITRATE IV Last administered on 04/13/17 08:33; Admin Dose 18.75 MLS/HR; Start 04/13/17 at 04 :00 Cefepime HCl (Maxipime 1gm/50 ml (Pmx)) 50 ml @ 100 mls/hr Q12 IVPB Last administered on 04/14/17 08:33; Admin Dose 100 MLS/HR; Start 04/13/17 at 13: 00 Amiodarone HCl 200 mg 200 mg BID PO Last administered on 04/14/17 08:34; Admin Dose 200 MG; Start 04/13/17 at 21:00 Vancomycin HCl (Vancocin) 250 ml @ 125 mls/hr Q24H IVPB ; Start 04/14/17 at 14 :00 LIBIA LANDIN NP Apr 14, 2017 12:33
[2017-04-14] MEDS: PHENYTOIN (25 MG/ML PO SYG) GTB SCH ×2 (12:53→20:27)
[2017-04-14] MEDS: VANCOMYCIN 1 GM in NS 250 ML IVPB SCH (14:20)
--- NOTE | 2017-04-14 19:08 | PN ---
Date/Time of Note Date/Time of Note DATE: 04/14/17 TIME: 18:22 Assessment/Plan VTE Prophylaxis VTE Prophylaxis Intervention: other Lines/Catheters IV Catheter Type (from Nrs): Mid Line Central line still needed: Yes Urinary Cath still in place: Yes Reason Cath still needed: urinary retention Assessment/Plan Assessment/Plan DO NOT RESUSCITATE -Acute hypoxic respiratory failure, continue ventilatory support, bronchodilators. - per pulmonology -Sepsis. - per ID -Atrial fibrillation with rapid ventricular response - per Dr. Redd is asked to see patient in cardiology consultation. -Rule out acute coronary syndrome -Troponin negative -Metabolic encephalopathy- resolving -Anemia- monitor CBC -Dysphagia with G-tube - aspiration precautions -History of ventilator dependent respiratory failure with tracheostomy -CHF -Hypertension -Seizure disorder - seizure precautions -BPH Further recommendations based on clinical course. Total critical care time spent is 40 mins.Plan of care discussed with Dr. Ramirez. Subjective 24 Hr Interval Summary Free Text/Dictation alert/awake, follows simple commands, family at bed side- all Qs answered Subjective hx not possible: pt non-verbal Constitutional: requiring IVF, requiring O2 Respiratory: no complaints Cardiovascular: no complaints Gastrointestinal: no complaints Genitourinary: no complaints Musculoskeletal: no complaints Exam/Review of Systems Vital Signs Vitals Vital Signs Date Time Temp Pulse Resp B/P Pulse Ox O2 Delivery O2 Flow Rate FiO2 04/14/17 17:40 62 21 100 30 04/14/17 16:30 123/46 Mechanical Ventilator 04/14/17 16:00 97.4 Intake and Output 04/13/17 04/13/17 04/14/17 15:00 23:00 07:00 Intake Total 724.75 ml 1248.75 ml 1340 ml Output Total 200 ml 200 ml 155 ml Balance 524.75 ml 1048.75 ml 1185 ml Exam Constitutional: non-verbal Respiratory: diminished breath sounds, normal air movement Cardiovascular: nl pulses (s1s2) Gastrointestinal: non-tender, soft Musculoskeletal: nl extremities to inspection Extremities: normal pulses Neurological: other (alert, follows simple commands, understan basic [place]) Results Result Diagram: 04/14/17 0400 04/14/17 0400 Results 24 hrs Laboratory Tests Test 04/13/17 21:31 04/14/17 01:00 04/14/17 01:14 04/14/17 04:00 Bedside Glucose 137 128 Urine Color LENI Urine Clarity SLIGHTLY CLOUDY A Urine pH 5.0 Urine Specific [place] 1.019 Urine Ketones TRACE A Urine Nitrite NEGATIVE Urine Bilirubin NEGATIVE Urine Urobilinogen NEGATIVE Urine Leukocyte Esterase 1+ H Urine Microscopic RBC 7 H Urine Microscopic WBC 21 H Urine Hemoglobin NEGATIVE Urine Glucose NEGATIVE Urine Total Protein NEGATIVE White Blood Count 5.4 # Red Blood Count 2.63 L Hemoglobin 7.8 L Hematocrit 23.7 L Mean Corpuscular Volume 90.1 Mean Corpuscular Hemoglobin 29.7 Mean Corpuscular Hemoglobin Concent 32.9 Red Cell Distribution Width 18.9 H Platelet Count 71 #L Mean Platelet Volume 10.6 H Neutrophils % 65.9 Lymphocytes % 19.7 Monocytes % 10.9 Eosinophils % 2.4 Basophils % 0.4 Nucleated Red Blood Cells % 0.0 Neutrophils # 3.6 Lymphocytes # 1.1 Monocytes # 0.6 Eosinophils # 0.1 Basophils # 0.0 Nucleated Red Blood Cells # 0.0 Sodium Level 146 H Potassium Level 4.1 Chloride Level 113 H Carbon Dioxide Level 23 Anion Gap 14 Blood Urea Nitrogen 50 H Creatinine 0.66 Glucose Level 130 Calcium Level 7.9 L Test 04/14/17 06:14 04/14/17 08:49 04/14/17 12:57 04/14/17 17:27 Bedside Glucose 171 187 190 183 Medications Medications Current Medications Ondansetron HCl (Zofran Inj) 4 mg Q6H PRN IV NAUSEA AND/OR VOMITING; Start at 15:00 Acetaminophen (Tylenol Liquid) 650 mg Q6H PRN PO PAIN LEVEL 1-3 OR FEVER; Start 04/12/17 at 15:00 Morphine Sulfate (morphine) 2 mg Q4H PRN IV PAIN LEVEL 7-10; Start 04/12/17 at 15:00 Famotidine (Pepcid Iv) 20 mg Q12 IV Last administered on 04/14/17 08:33; Admin Dose 20 MG; Start 04/12/17 at 21:00 Phenytoin (Dilantin Susp (Ped)) 200 mg Q12 GTB Last administered on 04/14/17 12:53; Admin Dose 200 MG; Start 04/12/17 at 21:00; Status Future hold Valproic Acid (Depakene) 250 mg BID GTB Last administered on 04/14/17 08:34; Admin Dose 250 MG; Start 04/12/17 at 21:00 Insulin Aspart (Novolog Insulin Pen) NOVOLOG *MILD* ALGORI... Q4 SC Last administered on 04/14/17 17:30; Admin Dose 2 UNIT; Start 04/12/17 at 17:00 Miscellaneous Information 1 ea NOTE XX ; Start 04/12/17 at 15:30 Glucose (Glutose) 15 gm Q15M PRN PO DECREASED GLUCOSE; Start 04/12/17 at 15:30 Glucose (Glutose) 22.5 gm Q15M PRN PO DECREASED GLUCOSE; Start 04/12/17 at 15: 30 Dextrose (D50w Syringe) 25 ml Q15M PRN IV DECREASED GLUCOSE; Start 04/12/17 at 15:30 Dextrose (D50w Syringe) 50 ml Q15M PRN IV DECREASED GLUCOSE; Start 04/12/17 at 15:30 Glucagon (Glucagen) 1 mg Q15M PRN IM DECREASED GLUCOSE; Start 04/12/17 at 15: 30 Glucose (Glutose) 15 gm Q15M PRN BUCCAL DECREASED GLUCOSE; Start 04/12/17 at 15:30 Metoprolol Tartrate (Lopressor) 5 mg Q4H PRN IV HR>110 Hold SBP<100; Start at 15:30 Atenolol 12.5 mg 12.5 mg BID GTB Last administered on 04/14/17 08:33; Admin Dose 12.5 MG; Start 04/12/17 at 21:00 Midazolam HCl (Versed) 50 ml @ 1 mls/hr TITRATE IV ; Start 04/12/17 at 15:30 Enoxaparin Sodium 40 mg 40 mg DAILY SC ; Start 04/13/17 at 09:00 Sodium Chloride 1,000 ml @ 75 mls/hr [id number] IV Last administered on 06:41; Admin Dose 75 MLS/HR; Start 04/12/17 at 23:30 Norepinephrine 16 mg/Dextrose 500 ml @ 1.87 mls/hr TITRATE IV Last administered on 04/13/17 08:33; Admin Dose 18.75 MLS/HR; Start 04/13/17 at 04 :00 Cefepime HCl (Maxipime 1gm/50 ml (Pmx)) 50 ml @ 100 mls/hr Q12 IVPB Last administered on 04/14/17 08:33; Admin Dose 100 MLS/HR; Start 04/13/17 at 13: 00 Amiodarone HCl 200 mg 200 mg BID PO Last administered on 04/14/17 08:34; Admin Dose 200 MG; Start 04/13/17 at 21:00 Vancomycin HCl (Vancocin) 250 ml @ 125 mls/hr Q24H IVPB Last administered on 04/14/17 14:20; Admin Dose 125 MLS/HR; Start 04/14/17 at 14:00 Mupirocin (Bactroban) 1 applic BID TOP ; Start 04/14/17 at 21:00 MITCHELL GUILLERMO Apr 14, 2017 18:32
[2017-04-14] MEDS: MUPIROCIN 2% 22 GM OINT TOP SCH (20:27)
[2017-04-15] VITALS (37 sets, daily range): BP systolic 109–174; BP diastolic 40–90; PULSE 54–75; RESP 12–26
[2017-04-15] MEDS: INSULIN ASPART [NOVOLOG] 3 ML PEN SC SCH ×6 (01:23→21:01)
[2017-04-15 05:03] LABS: ABNORMAL IP MESSAGE 1; BASOPHILS % 0.4 % (0.0-2.0); EOSINOPHILS # 0.2 10^3/ul (0.0-0.5); EOSINOPHILS % 4.3 % (0.0-7.0); HEMATOCRIT 25.8 % (42.0-52.0); HEMOGLOBIN 8.3 g/dl (14.0-18.0); LYMPHOCYTES # 0.9 10^3/ul (0.8-2.9); MEAN CORPUSCULAR HEMOGLOBIN 29.4 pg (29.0-33.0); MEAN CORPUSCULAR HGB CONC 32.2 g/dl (32.0-37.0); MEAN CORPUSCULAR VOLUME 91.5 fl (82.0-101.0); MEAN PLATELET VOLUME 11.2 fl (7.4-10.4); MONOCYTE # 0.6 10^3/ul (0.3-0.9); MONOCYTES % 10.8 % (0.0-11.0); NEUTROPHIL # 3.6 10^3/ul (1.6-7.5); PLATELET COUNT 93 10^3/UL (140-415); POSITIVE DIFF @See below; RED BLOOD COUNT 2.82 10^6/ul (4.70-6.10); RED CELL DISTRIBUTION WIDTH 18.6 % (11.5-14.5); WHITE BLOOD COUNT 5.4 10^3/ul (4.8-10.8)
[2017-04-15 05:39] LABS: CALCIUM 8.1 mg/dl (8.4-10.2); CREATININE 0.55 mg/dl (0.61-1.24); POTASSIUM 4.3 mmol/L (3.5-5.1)
--- NOTE | 2017-04-15 07:28 | PN ---
DATE: 04/13/2017 SUBJECTIVE/INTERVAL HISTORY: The patient is a 81-year-old gentleman with history of chronic respira tory failure with tracheostomy and G-tube. The patient is at baseline vent dependent and is awake a nd able to follow simple commands. The patient was transferred to the ER yesterday after he was fou nd to be lethargic and also had fever. The patient last night became hypotensive and had to be give n IV fluid bolus and also was started on to maintain adequate . The patient remains febr ile. Blood culture is growing gram-positive cocci. The patient has been given IV vancomycin, which will be continued. We will also give gram-negative coverage with cefepime. The patient remains ve nt dependent. His oxygenation has improved. Currently on FIO2 of 35%, O2 sat is 91%, Assist contro l, rate of 16, tidal volume 500. PHYSICAL EXAMINATION: HEENT: No eye discharge. The patient had cataract in the left eye. Nose and ears normal externall y. NECK: Tracheostomy in place, mild secretion. No mass. CHEST: Revealed diminished air entry at bases. No use of accessory muscles. CARDIOVASCULAR: S1, S2 normal. No murmur. ABDOMEN: Soft and nontender. G-tube in place. EXTREMITIES: Edema has improved significantly. NEUROLOGIC: The patient is more awake; however, does not follow commands, does appear weak and pale , does not have any significant movement of his extremities. LABORATORY DATA: Done this morning, WBC 11.3, hemoglobin 7.6, platelet 100, probably from sepsis. Sodium 144, potassium 4.4, BUN 47, creatinine 0.9. Lactic acid has normalized at 1.1, AST 37, ALT 3 3, alkaline phosphatase 46, albumin 2.9. Troponins have remained negative and glucose 131. IMPRESSION: 1. Septic shock, etiology unknown. Continue coverage with IV vancomycin and cefepime. Blood cultu re growing gram-positive cocci. Final identification to follow. The patient is being seen by Dr. Samara kuhn. 2. History of chronic congestive heart failure. Echo is pending. 3. Paroxysmal atrial fibrillation, currently in sinus rhythm. Continue atenolol if tolerated. 4. History of seizure disorder. Continue Depakote. 5. Anemia. We will give 1 unit of PRBC for symptomatic anemia. Meanwhile, continue IV fluids. If the patient's EF turns out to be low, then we will back off on IV fluids currently the x-ray does n ot show any gross congestive heart failure. 6. Coronary artery disease status post coronary artery bypass graft. Will add aspirin and meanwhil e continue Pepcid for GI prophylaxis. The patient remains critically ill, will continue to monitor him in ICU. Total critical care time spent 35 minutes. Plan of care discussed with nursing staff. Dictated By: ROSHNI BRADFORD/DAVID Conf#: [id number] DID#: [id number]
--- NOTE | 2017-04-15 08:56 | CONS ---
Date/Time of Note Date/Time of Note DATE: 04/15/17 TIME: 08:51 Consult Date/Type/Reason Admit Date/Time Apr 12, 2017 at 11:52 Initial Consult Date Type of Consultation: Pulmonary Ordering Provider: ROSHNI FABIAN MD Subjective Patient remains comfortable this morning. No desaturations. Eyes open but not following commands. No vasopressor support. Objective Vital Signs Date Time Temp Pulse Resp B/P Pulse Ox O2 Delivery O2 Flow Rate FiO2 04/15/17 06:00 60 17 142/51 97 Mechanical Ventilator 04/15/17 05:05 30 04/15/17 04:00 98.1 Intake and Output 04/14/17 04/14/17 04/15/17 14:59 22:59 06:59 Intake Total 1295 ml 1565 ml 1290 ml Output Total 210 ml 260 ml 225 ml Balance 1085 ml 1305 ml 1065 ml Exam PHYSICAL EXAMINATION: GENERAL: Chronically ill appearing gentleman, eyes open, diaphoretic on mechanical ventilation. VITAL SIGNS: NECK: Trach site appears clean and intact. CARDIAC: S1, S2, no added sounds or murmurs. CHEST: Diminished air entry bilaterally. ABDOMEN: Soft, nontender. No guarding or rebound. EXTREMITIES: No cyanosis, clubbing, edema. NEUROLOGIC: Generalized weakness. Results/Medications Result Diagram: 04/15/1740904/15/17 0410 Results 24 hrs Laboratory Tests Test 04/14/17 12:57 04/14/17 17:27 04/14/17 21:19 04/15/17 01:19 Bedside Glucose 190 183 183 163 Test 04/15/17 04:10 04/15/17 05:05 04/15/17 05:20 White Blood Count 5.4 Red Blood Count 2.82 L Hemoglobin 8.3 L Hematocrit 25.8 L Mean Corpuscular Volume 91.5 Mean Corpuscular Hemoglobin 29.4 Mean Corpuscular Hemoglobin Concent 32.2 Red Cell Distribution Width 18.6 H Platelet Count 93 #L Mean Platelet Volume 11.2 H Neutrophils % 67.0 Lymphocytes % 16.0 Monocytes % 10.8 Eosinophils % 4.3 Basophils % 0.4 Nucleated Red Blood Cells % 0.0 Neutrophils # 3.6 Lymphocytes # 0.9 Monocytes # 0.6 Eosinophils # 0.2 Basophils # 0.0 Nucleated Red Blood Cells # 0.0 Sodium Level 151 H Potassium Level 4.3 Chloride Level 115 H Carbon Dioxide Level 24 Anion Gap 16 Blood Urea Nitrogen 49 H Creatinine 0.55 L Glucose Level 145 Calcium Level 8.1 L Bedside Glucose 164 Lab Scanned Report BLOOD TRANSFUSION Medications Current Medications Ondansetron HCl (Zofran Inj) 4 mg Q6H PRN IV NAUSEA AND/OR VOMITING; Start at 15:00 Acetaminophen (Tylenol Liquid) 650 mg Q6H PRN PO PAIN LEVEL 1-3 OR FEVER; Start 04/12/17 at 15:00 Morphine Sulfate (morphine) 2 mg Q4H PRN IV PAIN LEVEL 7-10; Start 04/12/17 at 15:00 Famotidine (Pepcid Iv) 20 mg Q12 IV Last administered on 04/14/17 20:28; Admin Dose 20 MG; Start 04/12/17 at 21:00 Phenytoin (Dilantin Susp (Ped)) 200 mg Q12 GTB Last administered on 04/14/17 20:27; Admin Dose 200 MG; Start 04/12/17 at 21:00; Status Future hold Valproic Acid (Depakene) 250 mg BID GTB Last administered on 04/14/17 20:28; Admin Dose 250 MG; Start 04/12/17 at 21:00 Insulin Aspart (Novolog Insulin Pen) NOVOLOG *MILD* ALGORI... Q4 SC Last administered on 04/15/17 05:09; Admin Dose 1 UNIT; Start 04/12/17 at 17:00 Miscellaneous Information 1 ea NOTE XX ; Start 04/12/17 at 15:30 Glucose (Glutose) 15 gm Q15M PRN PO DECREASED GLUCOSE; Start 04/12/17 at 15:30 Glucose (Glutose) 22.5 gm Q15M PRN PO DECREASED GLUCOSE; Start 04/12/17 at 15: 30 Dextrose (D50w Syringe) 25 ml Q15M PRN IV DECREASED GLUCOSE; Start 04/12/17 at 15:30 Dextrose (D50w Syringe) 50 ml Q15M PRN IV DECREASED GLUCOSE; Start 04/12/17 at 15:30 Glucagon (Glucagen) 1 mg Q15M PRN IM DECREASED GLUCOSE; Start 04/12/17 at 15: 30 Glucose (Glutose) 15 gm Q15M PRN BUCCAL DECREASED GLUCOSE; Start 04/12/17 at 15:30 Metoprolol Tartrate (Lopressor) 5 mg Q4H PRN IV HR>110 Hold SBP<100; Start at 15:30 Atenolol 12.5 mg 12.5 mg BID GTB Last administered on 04/14/17 20:28; Admin Dose 12.5 MG; Start 04/12/17 at 21:00 Midazolam HCl (Versed) 50 ml @ 1 mls/hr TITRATE IV ; Start 04/12/17 at 15:30 Enoxaparin Sodium 40 mg 40 mg DAILY SC ; Start 04/13/17 at 09:00 Sodium Chloride 1,000 ml @ 75 mls/hr [id number] IV Last administered on 21:17; Admin Dose 75 MLS/HR; Start 04/12/17 at 23:30 Norepinephrine 16 mg/Dextrose 500 ml @ 1.87 mls/hr TITRATE IV Last administered on 04/13/17 08:33; Admin Dose 18.75 MLS/HR; Start 04/13/17 at 04 :00 Cefepime HCl (Maxipime 1gm/50 ml (Pmx)) 50 ml @ 100 mls/hr Q12 IVPB Last administered on 04/14/17 20:24; Admin Dose 100 MLS/HR; Start 04/13/17 at 13: 00 Amiodarone HCl 200 mg 200 mg BID PO Last administered on 04/14/17 20:28; Admin Dose 200 MG; Start 04/13/17 at 21:00 Vancomycin HCl (Vancocin) 250 ml @ 125 mls/hr Q24H IVPB Last administered on 04/14/17 14:20; Admin Dose 125 MLS/HR; Start 04/14/17 at 14:00 Mupirocin (Bactroban) 1 applic BID TOP Last administered on 04/14/17 20:27; Admin Dose 1 APPLIC; Start 04/14/17 at 21:00 Assessment/Plan Chief Complaint/Hosp Course IMPRESSION AND PLAN: 1. Likely hypercapnic respiratory failure secondary to tracheostomy tube adjacent to tracheal wall causing obstruction. Appreciate ENT recommendations. New tracheostomy pending. 2. Chronic respiratory failure. 3. Chronic encephalopathy. 4. Dysphagia with G-tube. The patient will require: 1. Adjustment of tracheostomy. 2. ENT evaluation for possible XLT tracheostomy. Pending new trach. 3. Continue tube feeding. 4. Deep venous thrombosis and gastrointestinal prophylaxis. 5. Family conference today regarding goals of care. Possible comfort measures Problems: JOSE MARTIN GLYNN MD, [facility] Apr 15, 2017 08:56
[2017-04-15] MEDS: ATENOLOL 25 MG TAB GTB SCH ×2 (09:26→20:49)
[2017-04-15] MEDS: AMIODARONE 200 MG TAB PO SCH ×2 (09:26→20:49)
[2017-04-15] MEDS: MUPIROCIN 2% 22 GM OINT TOP SCH ×2 (09:27→20:50)
[2017-04-15] MEDS: VALPROIC ACID 250 MG CAP GTB SCH ×2 (09:27→20:49)
[2017-04-15] MEDS: ENOXAPARIN 40 MG/0.4 ML SYG SC SCH (09:28)
[2017-04-15] MEDS: CEFEPIME 1GM/50 ML (PMX) 50 ML IVPB SCH (09:30)
[2017-04-15] MEDS: FAMOTIDINE 20 MG INJ IV SCH (09:40)
--- NOTE | 2017-04-15 10:26 | CONS ---
Date/Time of Note Date/Time of Note DATE: 04/15/17 TIME: 10:22 Assessment/Plan Assessment/Plan Chief Complaint/Hosp Course IMPRESSION: 1. Paroxysmal atrial fibrillation with rapid ventricular response, now back into sinus rhythm.-maintains in SR. Trop negative x 3 2. Abnormal electrocardiogram, assess for acute coronary syndrome. 3. Respiratory failure, chronic s/p trach, with worsening. 4. Respiratory acidosis. 5. Encephalopathy. 6. Anemia/thrombocytopenia 7. Seizure disorder. Recc: -Tele -serial ecg's -Continue atenolol as tolerated -Continue lovenox as tolerated only given anemia/low platelets -Continue abx's and f/u cx data -Contine PO amio in attempt to maintain SR -pnding trach change s/p ENT eval -family conference pnding Problems: Consultation Date/Type/Reason Admit Date/Time Apr 12, 2017 at 11:52 Initial Consult Date 04/12/2017 Type of Consultation: cardiology Reason for Consultation CHF Referring Provider: ROSHNI FABIAN MD Exam/Review of Systems Vital Signs Vitals Vital Signs Date Time Temp Pulse Resp B/P Pulse Ox O2 Delivery O2 Flow Rate FiO2 04/15/17 06:00 60 17 142/51 97 Mechanical Ventilator 04/15/17 05:05 30 04/15/17 04:00 98.1 Intake and Output 04/14/17 04/14/17 04/15/17 15:00 23:00 07:00 Intake Total 1295 ml 1565 ml 1160 ml Output Total 225 ml 255 ml 200 ml Balance 1070 ml 1310 ml 960 ml Exam Review of Systems: CONSTITUTIONAL: No fevers, chills. PULMONARY: trached CARDIOVASCULAR: No chest pain/palpitations GASTROINTESTINAL: No nausea/vomiting. GENITOURINARY: No hematuria/dysuria. MUSCULOSKELETAL: No myagias/arthalgias. PSYCHIATRIC: The patient denies depression. NEUROLOGIC: encephalopathic Constitutional: alert Psych: no complaints Head: normocephalic ENMT: mucosa pink and moist Neck: other (trached) Respiratory: other (upper airway rhocherous sounds) Cardiovascular: regular rate and rhythm Gastrointestinal: non-tender, soft Musculoskeletal: muscle tone Extremities: edema (none) Neurological: other Results Result Diagram: 04/15/17 0410 04/15/17 041 Results 24 hrs Laboratory Tests Test 04/14/17 12:57 04/14/17 17:27 04/14/17 21:19 04/15/17 01:19 Bedside Glucose 190 183 183 163 Test 04/15/17 04:10 04/15/17 05:05 04/15/17 05:20 04/15/17 09:11 White Blood Count 5.4 Red Blood Count 2.82 L Hemoglobin 8.3 L Hematocrit 25.8 L Mean Corpuscular Volume 91.5 Mean Corpuscular Hemoglobin 29.4 Mean Corpuscular Hemoglobin Concent 32.2 Red Cell Distribution Width 18.6 H Platelet Count 93 #L Mean Platelet Volume 11.2 H Neutrophils % 67.0 Lymphocytes % 16.0 Monocytes % 10.8 Eosinophils % 4.3 Basophils % 0.4 Nucleated Red Blood Cells % 0.0 Neutrophils # 3.6 Lymphocytes # 0.9 Monocytes # 0.6 Eosinophils # 0.2 Basophils # 0.0 Nucleated Red Blood Cells # 0.0 Sodium Level 151 H Potassium Level 4.3 Chloride Level 115 H Carbon Dioxide Level 24 Anion Gap 16 Blood Urea Nitrogen 49 H Creatinine 0.55 L Glucose Level 145 Calcium Level 8.1 L Bedside Glucose 164 190 Lab Scanned Report BLOOD TRANSFUSION Medications Medications Current Medications Ondansetron HCl (Zofran Inj) 4 mg Q6H PRN IV NAUSEA AND/OR VOMITING; Start at 15:00 Acetaminophen (Tylenol Liquid) 650 mg Q6H PRN PO PAIN LEVEL 1-3 OR FEVER; Start 04/12/17 at 15:00 Morphine Sulfate (morphine) 2 mg Q4H PRN IV PAIN LEVEL 7-10; Start 04/12/17 at 15:00 Famotidine (Pepcid Iv) 20 mg Q12 IV Last administered on 04/15/17 09:40; Admin Dose 20 MG; Start 04/12/17 at 21:00 Phenytoin (Dilantin Susp (Ped)) 200 mg Q12 GTB Last administered on 04/14/17 20:27; Admin Dose 200 MG; Start 04/12/17 at 21:00; Status Future hold Valproic Acid (Depakene) 250 mg BID GTB Last administered on 04/15/17 09:27; Admin Dose 250 MG; Start 04/12/17 at 21:00 Insulin Aspart (Novolog Insulin Pen) NOVOLOG *MILD* ALGORI... Q4 SC Last administered on 04/15/17 09:39; Admin Dose 2 UNIT; Start 04/12/17 at 17:00 Miscellaneous Information 1 ea NOTE XX ; Start 04/12/17 at 15:30 Glucose (Glutose) 15 gm Q15M PRN PO DECREASED GLUCOSE; Start 04/12/17 at 15:30 Glucose (Glutose) 22.5 gm Q15M PRN PO DECREASED GLUCOSE; Start 04/12/17 at 15: 30 Dextrose (D50w Syringe) 25 ml Q15M PRN IV DECREASED GLUCOSE; Start 04/12/17 at 15:30 Dextrose (D50w Syringe) 50 ml Q15M PRN IV DECREASED GLUCOSE; Start 04/12/17 at 15:30 Glucagon (Glucagen) 1 mg Q15M PRN IM DECREASED GLUCOSE; Start 04/12/17 at 15: 30 Glucose (Glutose) 15 gm Q15M PRN BUCCAL DECREASED GLUCOSE; Start 04/12/17 at 15:30 Metoprolol Tartrate (Lopressor) 5 mg Q4H PRN IV HR>110 Hold SBP<100; Start at 15:30 Atenolol 12.5 mg 12.5 mg BID GTB Last administered on 04/15/17 09:26; Admin Dose 12.5 MG; Start 04/12/17 at 21:00 Midazolam HCl (Versed) 50 ml @ 1 mls/hr TITRATE IV ; Start 04/12/17 at 15:30 Enoxaparin Sodium 40 mg 40 mg DAILY SC Last administered on 04/15/17 09:28; Admin Dose 40 MG; Start 04/13/17 at 09:00 Sodium Chloride 1,000 ml @ 75 mls/hr [id number] IV Last administered on 21:17; Admin Dose 75 MLS/HR; Start 04/12/17 at 23:30 Norepinephrine 16 mg/Dextrose 500 ml @ 1.87 mls/hr TITRATE IV Last administered on 04/13/17 08:33; Admin Dose 18.75 MLS/HR; Start 04/13/17 at 04 :00 Cefepime HCl (Maxipime 1gm/50 ml (Pmx)) 50 ml @ 100 mls/hr Q12 IVPB Last administered on 04/15/17 09:30; Admin Dose 100 MLS/HR; Start 04/13/17 at 13: 00 Amiodarone HCl 200 mg 200 mg BID PO Last administered on 04/15/17 09:26; Admin Dose 200 MG; Start 04/13/17 at 21:00 Vancomycin HCl (Vancocin) 250 ml @ 125 mls/hr Q24H IVPB Last administered on 04/14/17 14:20; Admin Dose 125 MLS/HR; Start 04/14/17 at 14:00 Mupirocin (Bactroban) 1 applic BID TOP Last administered on 04/15/17 09:27; Admin Dose 1 APPLIC; Start 04/14/17 at 21:00 DESIREE VALDEZ Apr 15, 2017 10:26
[2017-04-15] MEDS: PHENYTOIN (25 MG/ML PO SYG) GTB SCH ×2 (12:39→20:48)
[2017-04-15] MEDS: VANCOMYCIN 1 GM in NS 250 ML IVPB SCH (13:21)
--- NOTE | 2017-04-15 13:49 | PN ---
DATE: 04/15/2017 SUBJECTIVE: The patient is noncommunicative, lying comfortably in bed. No fevers. VITAL SIGNS: Temperature 98.2, pulse 54, respirations 16, blood pressure 128/46, saturation 98 on 3 0 FIO2. WBC 5.4, hemoglobin and hematocrit 8.3 and 25.8, platelets 93, no shift, no bands. BUN 49, creatini ne 0.55. INDWELLINGS: Trach, PEG, Rodriguez. MICROBIOLOGY: Nares swab came back positive for MRSA. Blood culture grew coagulase-negative staph species on admission. Urine culture negative. DIAGNOSTICS: Chest x-ray revealed a prior CABG, cardiomegaly with bibasilar atelectasis. ANTIMICROBIALS: The patient is on: 1. IV vancomycin. 2. Topical Bactroban to nares. 3. Cefepime. PHYSICAL EXAMINATION: GENERAL: This is a fragile, chronically ill-appearing, elderly man who is in no distress. HEENT: Head atraumatic, normocephalic. Sclerae anicteric. Buccal mucosa dry. NECK: Supple. CHEST: Rise symmetrical. Breath sounds diminished to bases. HEART: S1, S2. ABDOMEN: Soft, bowel tones present. EXTREMITIES: Without cyanosis. ASSESSMENT: 1. Status post septic shock. 2. Acute on chronic respiratory failure, status post trach adjustment by ENT. 3. Chronic encephalopathy. 4. Methicillin-resistant Staphylococcus aureus nares colonization. 5. Status post coagulase-negative staph bacteremia with repeat cultures pending. 6. Dysphagia. 7. History of coronary artery bypass graft. PLAN: The patient remains stable. He is DNR status. We will discontinue cefepime. Continue vanco mycin for now. Repeat blood cultures if it has not been done, pending family conference regarding p lans of care. Dictated By: JUDI KIDD MUFFLER INSTALLER for LAURA ALCAZAR/DAVID Conf#: [id number] DID#: [id number]
[2017-04-15] MEDS: BALSAM PERU/CASTOR OIL 60 GM TUBE TOP SCH ×2 (16:00→20:50)
--- NOTE | 2017-04-15 17:41 | PN ---
Date/Time of Note Date/Time of Note DATE: 04/15/17 TIME: 17:41 Assessment/Plan Lines/Catheters IV Catheter Type (from Nrs): Mid Line Central line still needed: Yes Urinary Cath still in place: Yes Reason Cath still needed: urinary retention Assessment/Plan Assessment/Plan DO NOT RESUSCITATE -Acute hypoxic respiratory failure, continue ventilatory support, bronchodilators. - per pulmonology -Sepsis. - per ID -Atrial fibrillation with rapid ventricular response - per Dr. Redd is asked to see patient in cardiology consultation. -Rule out acute coronary syndrome -Troponin negative -Metabolic encephalopathy- resolving -Anemia- monitor CBC -Dysphagia with G-tube - aspiration precautions -History of ventilator dependent respiratory failure with tracheostomy -CHF -Hypertension -Seizure disorder - seizure precautions -BPH Further recommendations based on clinical course. Total critical care time spent is 40 mins.Plan of care discussed with Dr. Ramirez. Subjective 24 Hr Interval Summary Constitutional: requiring IVF, requiring O2 Exam/Review of Systems Vital Signs Vitals Vital Signs Date Time Temp Pulse Resp B/P Pulse Ox O2 Delivery O2 Flow Rate FiO2 04/15/17 16:00 59 04/15/17 13:56 23 100 30 04/15/17 12:00 98.2 128/46 Mechanical Ventilator Intake and Output 04/14/17 04/14/17 04/15/17 15:00 23:00 07:00 Intake Total 1295 ml 1565 ml 1215 ml Output Total 225 ml 255 ml 260 ml Balance 1070 ml 1310 ml 955 ml Exam Constitutional: alert Respiratory: diminished breath sounds Cardiovascular: nl pulses Results Result Diagram: 04/15/17 0410 04/15/17 0410 Results 24 hrs Laboratory Tests Test 04/14/17 21:19 04/15/17 01:19 04/15/17 04:10 04/15/17 05:05 Bedside Glucose 183 163 164 White Blood Count 5.4 Red Blood Count 2.82 L Hemoglobin 8.3 L Hematocrit 25.8 L Mean Corpuscular Volume 91.5 Mean Corpuscular Hemoglobin 29.4 Mean Corpuscular Hemoglobin Concent 32.2 Red Cell Distribution Width 18.6 H Platelet Count 93 #L Mean Platelet Volume 11.2 H Neutrophils % 67.0 Lymphocytes % 16.0 Monocytes % 10.8 Eosinophils % 4.3 Basophils % 0.4 Nucleated Red Blood Cells % 0.0 Neutrophils # 3.6 Lymphocytes # 0.9 Monocytes # 0.6 Eosinophils # 0.2 Basophils # 0.0 Nucleated Red Blood Cells # 0.0 Sodium Level 151 H Potassium Level 4.3 Chloride Level 115 H Carbon Dioxide Level 24 Anion Gap 16 Blood Urea Nitrogen 49 H Creatinine 0.55 L Glucose Level 145 Calcium Level 8.1 L Test 04/15/17 05:20 04/15/17 09:11 04/15/17 13:23 04/15/17 17:14 Lab Scanned Report BLOOD TRANSFUSION Bedside Glucose 190 187 180 Medications Medications Current Medications Ondansetron HCl (Zofran Inj) 4 mg Q6H PRN IV NAUSEA AND/OR VOMITING; Start at 15:00 Acetaminophen (Tylenol Liquid) 650 mg Q6H PRN PO PAIN LEVEL 1-3 OR FEVER; Start 04/12/17 at 15:00 Morphine Sulfate (morphine) 2 mg Q4H PRN IV PAIN LEVEL 7-10; Start 04/12/17 at 15:00 Phenytoin (Dilantin Susp (Ped)) 200 mg Q12 GTB Last administered on 04/15/17 12:39; Admin Dose 200 MG; Start 04/12/17 at 21:00; Status Future hold Valproic Acid (Depakene) 250 mg BID GTB Last administered on 04/15/17 09:27; Admin Dose 250 MG; Start 04/12/17 at 21:00 Insulin Aspart (Novolog Insulin Pen) NOVOLOG *MILD* ALGORI... Q4 SC Last administered on 04/15/17 17:24; Admin Dose 1 UNIT; Start 04/12/17 at 17:00 Miscellaneous Information 1 ea NOTE XX ; Start 04/12/17 at 15:30 Glucose (Glutose) 15 gm Q15M PRN PO DECREASED GLUCOSE; Start 04/12/17 at 15:30 Glucose (Glutose) 22.5 gm Q15M PRN PO DECREASED GLUCOSE; Start 04/12/17 at 15: 30 Dextrose (D50w Syringe) 25 ml Q15M PRN IV DECREASED GLUCOSE; Start 04/12/17 at 15:30 Dextrose (D50w Syringe) 50 ml Q15M PRN IV DECREASED GLUCOSE; Start 04/12/17 at 15:30 Glucagon (Glucagen) 1 mg Q15M PRN IM DECREASED GLUCOSE; Start 04/12/17 at 15: 30 Glucose (Glutose) 15 gm Q15M PRN BUCCAL DECREASED GLUCOSE; Start 04/12/17 at 15:30 Metoprolol Tartrate (Lopressor) 5 mg Q4H PRN IV HR>110 Hold SBP<100; Start at 15:30 Atenolol 12.5 mg 12.5 mg BID GTB Last administered on 04/15/17 09:26; Admin Dose 12.5 MG; Start 04/12/17 at 21:00 Midazolam HCl (Versed) 50 ml @ 1 mls/hr TITRATE IV ; Start 04/12/17 at 15:30 Enoxaparin Sodium 40 mg 40 mg DAILY SC Last administered on 04/15/17 09:28; Admin Dose 40 MG; Start 04/13/17 at 09:00 Sodium Chloride 1,000 ml @ 75 mls/hr [id number] IV Last administered on 21:17; Admin Dose 75 MLS/HR; Start 04/12/17 at 23:30 Norepinephrine/ Dextrose (Levophed/D5W) 500 ml @ 1.87 mls/hr TITRATE IV Last administered on 04/13/17 08:33; Admin Dose 18.75 MLS/HR; Start 04/13/17 at 04 :00 Amiodarone HCl 200 mg 200 mg BID PO Last administered on 04/15/17 09:26; Admin Dose 200 MG; Start 04/13/17 at 21:00 Vancomycin HCl (Vancocin) 250 ml @ 125 mls/hr Q24H IVPB Last administered on 04/15/17 13:21; Admin Dose 125 MLS/HR; Start 04/14/17 at 14:00 Mupirocin (Bactroban) 1 applic BID TOP Last administered on 04/15/17 09:27; Admin Dose 1 APPLIC; Start 04/14/17 at 21:00 Miscellaneous Information (*Rx Drug Level Order Reminder*) VANCOMYCIN TROUGH AT 1300 ONCE ONCE XX ; Start 04/16/17 at 13:00; Stop 04/16/17 at 13:01 Famotidine (Pepcid) 20 mg Q12 GTB ; Start 04/15/17 at 21:00 MITCHELL GUILLERMO Apr 15, 2017 17:41
[2017-04-15] MEDS: SOD CHLORIDE 0.9% 1,000 ML IV SCH (19:44)
[2017-04-15] MEDS ORDERED: FAMOTIDINE 20 MG TAB ONE (19:57)
[2017-04-15] MEDS: FAMOTIDINE 20 MG TAB GTB SCH (20:48)
--- NOTE | 2017-04-15 22:52 | CONS ---
DATE OF ADMISSION: 04/12/2017 DATE OF CONSULTATION: ENT was reconsulted to follow up to change his trach from the short 7 that it is to a 6 XLT proximal trach. It should be more stable; however, when discussing with the family member there, she stated that the family had a meeting set up with the patient's hospitalist so they could put the patient o n DNR and take him off the ventilator. I had a discussion with her and felt that there was no need for me to change the tracheostomy tube at this time as shortly he is going to be off the ventilator any way. I then spoke with the patient's nurse, stating that if there was any change in the future plan to please let me know and I will return to change the tracheostomy tube at that time, but for t he meanwhile, I will just observe. If there are any questions or concerns, please feel free to call at any time. Dictated By: REUBEN FERNANDO/DAVID Conf#: [id number] DID#: [id number] CC: ROSHNI FABIAN MD;*EndCC*
[2017-04-16] VITALS (28 sets, daily range): BP systolic 45–150; BP diastolic 32–106; PULSE 0–82; RESP 0–35
[2017-04-16] MEDS: INSULIN ASPART [NOVOLOG] 3 ML PEN SC SCH ×3 (00:50→09:43)
[2017-04-16] MEDS: SOD CHLORIDE 0.9% 1,000 ML IV SCH ×2 (07:30→09:40)
[2017-04-16] MEDS: PHENYTOIN (25 MG/ML PO SYG) GTB SCH (09:00)
--- NOTE | 2017-04-16 09:35 | CONS ---
Date/Time of Note Date/Time of Note DATE: 04/16/17 TIME: 09:33 Assessment/Plan Assessment/Plan Additional Assessment/Plan 1. Paroxysmal atrial fibrillation with rapid ventricular response, now back into sinus rhythm.-maintains in SR. Trop negative x 3 - IN SINUS NOW, no new episodes 2. Abnormal electrocardiogram, assess for acute coronary syndrome- R/o IA, no intervention planned. 3. Respiratory failure, chronic s/p trach, with worsening - pulmonary team follows, on anti-Bx. 4. Respiratory acidosis. 5. Encephalopathy- unchanged. 6. Anemia/thrombocytopenia 7. Seizure disorder- no new episodes reported. Consultation Date/Type/Reason Admit Date/Time Apr 12, 2017 at 11:52 Initial Consult Date Type of Consultation: cardiology Referring Provider: ROSHNI FABIAN MD 24 HR Interval Summary Free Text/Dictation No acute events - BP stable - in sinus rhythm now - will monitor clinically. ROS: No fever, no chills, no nausea, no vomiting, no diarrhea/constipation No recent weight changes No chest pain, no PND, no orthopnea No dizziness, blurred vision No thirst, no heat or cold intolerance (SOB chronic) per nurse Exam/Review of Systems Vital Signs Vitals Vital Signs Date Time Temp Pulse Resp B/P Pulse Ox O2 Delivery O2 Flow Rate FiO2 04/16/17 07:00 57 16 128/52 99 Mechanical Ventilator 04/16/17 05:35 30 04/16/17 04:00 98.4 Intake and Output 04/15/17 04/15/17 04/16/17 15:00 23:00 07:00 Intake Total 430 ml 620 ml 725 ml Output Total 60 ml 170 ml 160 ml Balance 370 ml 450 ml 565 ml Exam General: WN/WD/NAD, AOx 0 HEENT: Unicetric/atraumatic/EOMI (does not follow commands) NECK: no thyromegaly TRACH Lymph: no lymphadenopathy HEART: regular with no S3, II/ systolic murmur at apex LUNGS: Coarse sounds ABD: soft, NT, ND, +BS : Intact Neuro: non focal SKIN: chronic changes EXT: trace edema Results Result Diagram: 04/15/17 0410 04/15/170 Results 24 hrs Laboratory Tests Test 04/15/17 13:23 04/15/17 17:14 04/15/17 20:52 04/16/17 00:46 Bedside Glucose 187 180 177 170 Test 04/16/17 05:19 Bedside Glucose 150 Medications Medications Current Medications Ondansetron HCl (Zofran Inj) 4 mg Q6H PRN IV NAUSEA AND/OR VOMITING; Start at 15:00 Acetaminophen (Tylenol Liquid) 650 mg Q6H PRN PO PAIN LEVEL 1-3 OR FEVER; Start 04/12/17 at 15:00 Morphine Sulfate (morphine) 2 mg Q4H PRN IV PAIN LEVEL 7-10; Start 04/12/17 at 15:00 Phenytoin (Dilantin Susp (Ped)) 200 mg Q12 GTB Last administered on 04/15/17 20:48; Admin Dose 200 MG; Start 04/12/17 at 21:00; Status Future hold Valproic Acid (Depakene) 250 mg BID GTB Last administered on 04/15/17 20:49; Admin Dose 250 MG; Start 04/12/17 at 21:00 Insulin Aspart (Novolog Insulin Pen) NOVOLOG *MILD* ALGORI... Q4 SC Last administered on 04/16/17 05:33; Admin Dose 1 UNIT; Start 04/12/17 at 17:00 Miscellaneous Information 1 ea NOTE XX ; Start 04/12/17 at 15:30 Glucose (Glutose) 15 gm Q15M PRN PO DECREASED GLUCOSE; Start 04/12/17 at 15:30 Glucose (Glutose) 22.5 gm Q15M PRN PO DECREASED GLUCOSE; Start 04/12/17 at 15: 30 Dextrose (D50w Syringe) 25 ml Q15M PRN IV DECREASED GLUCOSE; Start 04/12/17 at 15:30 Dextrose (D50w Syringe) 50 ml Q15M PRN IV DECREASED GLUCOSE; Start 04/12/17 at 15:30 Glucagon (Glucagen) 1 mg Q15M PRN IM DECREASED GLUCOSE; Start 04/12/17 at 15: 30 Glucose (Glutose) 15 gm Q15M PRN BUCCAL DECREASED GLUCOSE; Start 04/12/17 at 15:30 Metoprolol Tartrate (Lopressor) 5 mg Q4H PRN IV HR>110 Hold SBP<100; Start at 15:30 Atenolol 12.5 mg 12.5 mg BID GTB Last administered on 04/15/17 20:49; Admin Dose 12.5 MG; Start 04/12/17 at 21:00 Midazolam HCl (Versed) 50 ml @ 1 mls/hr TITRATE IV ; Start 04/12/17 at 15:30 Enoxaparin Sodium 40 mg 40 mg DAILY SC Last administered on 04/15/17 09:28; Admin Dose 40 MG; Start 04/13/17 at 09:00 Sodium Chloride 1,000 ml @ 75 mls/hr [id number] IV Last administered on 19:44; Admin Dose 75 MLS/HR; Start 04/12/17 at 23:30 Norepinephrine/ Dextrose (Levophed/D5W) 500 ml @ 1.87 mls/hr TITRATE IV Last administered on 04/13/17 08:33; Admin Dose 18.75 MLS/HR; Start 04/13/17 at 04 :00 Amiodarone HCl 200 mg 200 mg BID PO Last administered on 04/15/17 20:49; Admin Dose 200 MG; Start 04/13/17 at 21:00 Vancomycin HCl (Vancocin) 250 ml @ 125 mls/hr Q24H IVPB Last administered on 04/15/17 13:21; Admin Dose 125 MLS/HR; Start 04/14/17 at 14:00 Mupirocin (Bactroban) 1 applic BID TOP Last administered on 04/15/17 20:50; Admin Dose 1 APPLIC; Start 04/14/17 at 21:00 Miscellaneous Information (*Rx Drug Level Order Reminder*) VANCOMYCIN TROUGH AT 1300 ONCE ONCE XX ; Start 04/16/17 at 13:00; Stop 04/16/17 at 13:01 Famotidine (Pepcid) 20 mg Q12 GTB Last administered on 04/15/17 20:48; Admin Dose 20 MG; Start 04/15/17 at 21:00 DONNY MACKEY MD Apr 16, 2017 09:35
[2017-04-16] MEDS: VALPROIC ACID 250 MG CAP GTB SCH (09:38)
[2017-04-16] MEDS: FAMOTIDINE 20 MG TAB GTB SCH (09:39)
[2017-04-16] MEDS: ATENOLOL 25 MG TAB GTB SCH (09:39)
[2017-04-16] MEDS: AMIODARONE 200 MG TAB PO SCH (09:39)
[2017-04-16] MEDS: MUPIROCIN 2% 22 GM OINT TOP SCH (09:40)
[2017-04-16] MEDS: BALSAM PERU/CASTOR OIL 60 GM TUBE TOP SCH (09:40)
[2017-04-16] MEDS: ENOXAPARIN 40 MG/0.4 ML SYG SC SCH (09:42)
[2017-04-16] MEDS ORDERED: ONDANSETRON 4 MG INJ IV PRN (11:30)
[2017-04-16] MEDS ORDERED: ALBUTEROL/IPRATROPIUM (NEB) 3 ML AMP HHN PRN (11:30)
[2017-04-16] MEDS ORDERED: LORAZEPAM 2 MG INJ IV ONE (11:30)
[2017-04-16] MEDS ORDERED: morphine (DRIP) 100 MG/100 ML 100 ML IV SCH (11:30)
[2017-04-16] MEDS ORDERED: morphine 10 MG INJ IV ONE (11:30)
[2017-04-16] MEDS ORDERED: ACETAMINOPHEN 325 MG TAB PEG PRN (11:30)
[2017-04-16] MEDS ORDERED: ATROPINE 1% 5 ML OPH SL PRN (12:00)
[2017-04-16] MEDS ORDERED: ARTIFICIAL TEARS 15 ML OPH BOTH EYES PRN (12:00)
--- NOTE | 2017-04-16 12:05 | PN ---
Date/Time of Note Date/Time of Note DATE: 04/16/17 TIME: Pt is seen at 10:40. Assessment/Plan VTE Prophylaxis VTE Prophylaxis Intervention: SCD's Lines/Catheters IV Catheter Type (from Nrsg): Mid Line Central line still needed: Yes Urinary Cath still in place: Yes Reason Cath still needed: urinary retention Assessment/Plan Chief Complaint/Hosp Course Pending hospice eval Assessment/Plan -Acute hypoxic respiratory failure, -Sepsis. -Atrial fibrillation with rapid ventricular response -Acute on chronic Metabolic encephalopathy -Anemia -Dysphagia with G-tube -History of ventilator dependent respiratory failure with tracheostomy -CHF -Hypertension -Seizure disorder -BPH -DNR status Further recommendations based on clinical course. Plan of care discussed with Dr. Ramirez. Problems: Exam/Review of Systems Vital Signs Vitals Vital Signs Date Time Temp Pulse Resp B/P Pulse Ox O2 Delivery O2 Flow Rate FiO2 04/16/17 11:21 63 16 100 30 04/16/17 07:00 128/52 Mechanical Ventilator 04/16/17 04:00 98.4 Intake and Output 04/15/17 04/15/17 04/16/17 15:00 23:00 07:00 Intake Total 430 ml 620 ml 725 ml Output Total 60 ml 170 ml 160 ml Balance 370 ml 450 ml 565 ml Exam Constitutional: frail, non-verbal Head: atraumatic, normocephalic Neck: other trach, supple Respiratory: diminished breath sounds Cardiovascular: nl pulses, regular rate and rhythm Gastrointestinal: non-tender, other (G-tube), soft Musculoskeletal: nl extremities to inspection Extremities: normal pulses Results Result Diagram: 04/15/17 0410 04/15/17 0410 Results 24 hrs Laboratory Tests Test 04/15/17 13:23 04/15/17 17:14 04/15/17 20:52 04/16/17 00:46 Bedside Glucose 187 180 177 170 Test 04/16/17 05:19 04/16/17 09:38 Bedside Glucose 150 152 Medications Medications Current Medications Ondansetron HCl (Zofran Inj) 4 mg Q6H PRN IV NAUSEA AND/OR VOMITING; Start at 15:00 Acetaminophen (Tylenol Liquid) 650 mg Q6H PRN PO PAIN LEVEL 1-3 OR FEVER; Start 04/12/17 at 15:00 Morphine Sulfate (morphine) 2 mg Q4H PRN IV PAIN LEVEL 7-10; Start 04/12/17 at 15:00 Phenytoin (Dilantin Susp (Ped)) 200 mg Q12 GTB Last administered on 04/15/17 20:48; Admin Dose 200 MG; Start 04/12/17 at 21:00; Status Future hold Valproic Acid (Depakene) 250 mg BID GTB Last administered on 04/16/17 09:38; Admin Dose 250 MG; Start 04/12/17 at 21:00 Insulin Aspart (Novolog Insulin Pen) NOVOLOG *MILD* ALGORI... Q4 SC Last administered on 04/16/17 09:43; Admin Dose 1 UNIT; Start 04/12/17 at 17:00 Miscellaneous Information 1 ea NOTE XX ; Start 04/12/17 at 15:30 Glucose (Glutose) 15 gm Q15M PRN PO DECREASED GLUCOSE; Start 04/12/17 at 15:30 Glucose (Glutose) 22.5 gm Q15M PRN PO DECREASED GLUCOSE; Start 04/12/17 at 15: 30 Dextrose (D50w Syringe) 25 ml Q15M PRN IV DECREASED GLUCOSE; Start 04/12/17 at 15:30 Dextrose (D50w Syringe) 50 ml Q15M PRN IV DECREASED GLUCOSE; Start 04/12/17 at 15:30 Glucagon (Glucagen) 1 mg Q15M PRN IM DECREASED GLUCOSE; Start 04/12/17 at 15: 30 Glucose (Glutose) 15 gm Q15M PRN BUCCAL DECREASED GLUCOSE; Start 04/12/17 at 15:30 Metoprolol Tartrate (Lopressor) 5 mg Q4H PRN IV HR>110 Hold SBP<100; Start at 15:30 Atenolol 12.5 mg 12.5 mg BID GTB Last administered on 04/16/17 09:39; Admin Dose 12.5 MG; Start 04/12/17 at 21:00 Midazolam HCl (Versed) 50 ml @ 1 mls/hr TITRATE IV ; Start 04/12/17 at 15:30 Enoxaparin Sodium 40 mg 40 mg DAILY SC Last administered on 04/16/17 09:42; Admin Dose 40 MG; Start 04/13/17 at 09:00 Sodium Chloride 1,000 ml @ 75 mls/hr [id number] IV Last administered on 09:40; Admin Dose 75 MLS/HR; Start 04/12/17 at 23:30 Norepinephrine/ Dextrose (Levophed/D5W) 500 ml @ 1.87 mls/hr TITRATE IV Last administered on 04/13/17 08:33; Admin Dose 18.75 MLS/HR; Start 04/13/17 at 04 :00 Amiodarone HCl 200 mg 200 mg BID PO Last administered on 04/16/17 09:39; Admin Dose 200 MG; Start 04/13/17 at 21:00 Vancomycin HCl (Vancocin) 250 ml @ 125 mls/hr Q24H IVPB Last administered on 04/15/17 13:21; Admin Dose 125 MLS/HR; Start 04/14/17 at 14:00 Mupirocin (Bactroban) 1 applic BID TOP Last administered on 04/16/17 09:40; Admin Dose 1 APPLIC; Start 04/14/17 at 21:00 Miscellaneous Information (*Rx Drug Level Order Reminder*) VANCOMYCIN TROUGH AT 1300 ONCE ONCE XX ; Start 04/16/17 at 13:00; Stop 04/16/17 at 13:01 Famotidine 20 mg 20 mg Q12 GTB Last administered on 04/16/17 09:39; Admin Dose 20 MG; Start 04/15/17 at 21:00 Morphine Sulfate/ Sodium Chloride (morphine) 100 ml @ 1 mls/hr TITRATE IV ; Start 04/16/17 at 11:30 Acetaminophen (Tylenol Tab) 650 mg Q4H PRN PEG MILD DISCOMFORT OR TEMP>99.5F; Start 04/16/17 at 11:30 Ondansetron HCl (Zofran Inj) 2 mg Q6H PRN IV NAUSEA AND/OR VOMITING; Start at 11:30 Scopolamine (Transderm-Scop) 1 patch Q72H TRANSDERM ; Start 04/16/17 at 13:00 Atropine Sulfate 2 drop 2 drop Q2H PRN SL TERMINAL CONGESTION; Start 04/16/17 at 12:00 Lorazepam/Dextrose (Ativan/D5W) 60 ml @ 0 mls/hr TITRATE IV ; Start 04/16/17 at 12:00; Status AAMIR ROMANO Apr 16, 2017 12:05
--- NOTE | 2017-04-16 12:19 | CONS ---
Date/Time of Note Date/Time of Note DATE: 04/16/17 TIME: 12:18 Assessment/Plan Assessment/Plan Additional Assessment/Plan Ventilator setting; AC of 16, tidal volume 500, PEEP of 0, 30% FiO2. Assessment and recommendations; 1. Patient admitted with gram-positive sepsis clinically improving. 2. Tracheostomy tube malfunction, awaiting replacement. 3. Advanced dementia. 4. Anemia and thrombocytopenia. 5. Chronic ventilator dependent respiratory failure. Continue current treatment. Prognosis is very poor. Consultation Date/Type/Reason Admit Date/Time Apr 12, 2017 at 11:52 Type of Consultation: Pulmonary/critical care Referring Provider: ROSHNI FABIAN MD 24 HR Interval Summary Free Text/Dictation Patient's condition remains unchanged. Remains essentially unresponsive but awake. Has remained hemodynamically stable. General exam; elderly male, on ventilator via tracheostomy, currently in no distress. Exam/Review of Systems Vital Signs Vitals Vital Signs Date Time Temp Pulse Resp B/P Pulse Ox O2 Delivery O2 Flow Rate FiO2 04/16/17 11:21 63 16 100 30 04/16/17 07:00 128/52 Mechanical Ventilator 04/16/17 04:00 98.4 Intake and Output 04/15/17 04/15/17 04/16/17 15:00 23:00 07:00 Intake Total 430 ml 620 ml 725 ml Output Total 60 ml 170 ml 160 ml Balance 370 ml 450 ml 565 ml Exam HEENT exam; supple neck, no JVD. No lymphadenopathy. Midline trachea. No thyromegaly. Tracheostomy in place. Insertion site is clean. Patient is edentulous. Chest exam; diminished but clear breath sound. S1-S2 audible, no murmurs. Regular rhythm. Abdomen exam; soft, G-tube in place. No organomegaly. Bowel sounds audible. Extremity exam; no edema. [employer] exam; patient is awake but unresponsive to any commands. Results Result Diagram: 04/15/17 0410 04/15/17 0410 Results 24 hrs Laboratory Tests Test 04/15/17 13:23 04/15/17 17:14 04/15/17 20:52 04/16/17 00:46 Bedside Glucose 187 180 177 170 Test 04/16/17 05:19 04/16/17 09:38 Bedside Glucose 150 152 Medications Medications Current Medications Ondansetron HCl (Zofran Inj) 4 mg Q6H PRN IV NAUSEA AND/OR VOMITING; Start at 15:00 Acetaminophen (Tylenol Liquid) 650 mg Q6H PRN PO PAIN LEVEL 1-3 OR FEVER; Start 04/12/17 at 15:00 Morphine Sulfate (morphine) 2 mg Q4H PRN IV PAIN LEVEL 7-10; Start 04/12/17 at 15:00 Phenytoin (Dilantin Susp (Ped)) 200 mg Q12 GTB Last administered on 04/15/17 20:48; Admin Dose 200 MG; Start 04/12/17 at 21:00; Status Future hold Valproic Acid (Depakene) 250 mg BID GTB Last administered on 04/16/17 09:38; Admin Dose 250 MG; Start 04/12/17 at 21:00 Insulin Aspart (Novolog Insulin Pen) NOVOLOG *MILD* ALGORI... Q4 SC Last administered on 04/16/17 09:43; Admin Dose 1 UNIT; Start 04/12/17 at 17:00 Miscellaneous Information 1 ea NOTE XX ; Start 04/12/17 at 15:30 Glucose (Glutose) 15 gm Q15M PRN PO DECREASED GLUCOSE; Start 04/12/17 at 15:30 Glucose (Glutose) 22.5 gm Q15M PRN PO DECREASED GLUCOSE; Start 04/12/17 at 15: 30 Dextrose (D50w Syringe) 25 ml Q15M PRN IV DECREASED GLUCOSE; Start 04/12/17 at 15:30 Dextrose (D50w Syringe) 50 ml Q15M PRN IV DECREASED GLUCOSE; Start 04/12/17 at 15:30 Glucagon (Glucagen) 1 mg Q15M PRN IM DECREASED GLUCOSE; Start 04/12/17 at 15: 30 Glucose (Glutose) 15 gm Q15M PRN BUCCAL DECREASED GLUCOSE; Start 04/12/17 at 15:30 Metoprolol Tartrate (Lopressor) 5 mg Q4H PRN IV HR>110 Hold SBP<100; Start at 15:30 Atenolol (Tenormin) 12.5 mg BID GTB Last administered on 04/16/17 09:39; Admin Dose 12.5 MG; Start 04/12/17 at 21:00 Enoxaparin Sodium 40 mg 40 mg DAILY SC Last administered on 04/16/17 09:42; Admin Dose 40 MG; Start 04/13/17 at 09:00 Sodium Chloride 1,000 ml @ 75 mls/hr [id number] IV Last administered on 09:40; Admin Dose 75 MLS/HR; Start 04/12/17 at 23:30 Norepinephrine/ Dextrose (Levophed/D5W) 500 ml @ 1.87 mls/hr TITRATE IV Last administered on 04/13/17 08:33; Admin Dose 18.75 MLS/HR; Start 04/13/17 at 04 :00 Amiodarone HCl 200 mg 200 mg BID PO Last administered on 04/16/17 09:39; Admin Dose 200 MG; Start 04/13/17 at 21:00 Vancomycin HCl (Vancocin) 250 ml @ 125 mls/hr Q24H IVPB Last administered on 04/15/17 13:21; Admin Dose 125 MLS/HR; Start 04/14/17 at 14:00 Mupirocin (Bactroban) 1 applic BID TOP Last administered on 04/16/17 09:40; Admin Dose 1 APPLIC; Start 04/14/17 at 21:00 Miscellaneous Information (*Rx Drug Level Order Reminder*) VANCOMYCIN TROUGH AT 1300 ONCE ONCE XX ; Start 04/16/17 at 13:00; Stop 04/16/17 at 13:01 Famotidine 20 mg 20 mg Q12 GTB Last administered on 04/16/17 09:39; Admin Dose 20 MG; Start 04/15/17 at 21:00 Morphine Sulfate/ Sodium Chloride (morphine) 100 ml @ 1 mls/hr TITRATE IV ; Start 04/16/17 at 11:30 Acetaminophen (Tylenol Tab) 650 mg Q4H PRN PEG MILD DISCOMFORT OR TEMP>99.5F; Start 04/16/17 at 11:30 Ondansetron HCl (Zofran Inj) 2 mg Q6H PRN IV NAUSEA AND/OR VOMITING; Start at 11:30 Scopolamine (Transderm-Scop) 1 patch Q72H TRANSDERM ; Start 04/16/17 at 13:00 Atropine Sulfate 2 drop 2 drop Q2H PRN SL TERMINAL CONGESTION; Start 04/16/17 at 12:00 Lorazepam/Dextrose (Ativan/D5W) 60 ml @ 0 mls/hr TITRATE IV ; Start 04/16/17 at 13:00 LONDON LICEA Apr 16, 2017 12:19
[2017-04-16] MEDS ORDERED: DIMETHICONE STICK TOP PRN (13:00)
[2017-04-16] MEDS ORDERED: SCOPOLAMINE 1.5 MG PATCH TRANSDERM SCH (13:00)
[2017-04-16] MEDS ORDERED: LORAZEPAM (MDV) 60 MG in DEXTROSE 5% 30 ML IV SCH (13:00)
[2017-04-16] MEDS ORDERED: VALPROIC ACID LIQUID CUP 250 MG/5 ML CUP GTB SCH (14:00)
[2017-04-16] MEDS ORDERED: PHENYTOIN (100 MG/4 ML) CUP GTB SCH (14:30)
--- NOTE | 2017-04-16 14:32 | RADRPT ---
Vent Rate: 68 bpm RR Interval: 0 msec MN Interval: 244 msec QRS Duration: 136 msec QT Interval: 442 msec QTC Interval: 469 msec P-R-T Waterfall: 0 - 69 - 156 degrees Sinus rhythm with 1st degree AV block Right bundle branch block T wave abnormality, consider lateral ischemia Abnormal ECG Electronically Signed By: Alan Shepherd [id number]
--- NOTE | 2017-04-16 14:36 | RADRPT ---
Vent Rate: 103 bpm RR Interval: 0 msec MT Interval: 0 msec QRS Duration: 146 msec QT Interval: 370 msec QTC Interval: 484 msec P-R-T Eek: 0 - 60 - 33 degrees Sinus tachycardia with 1st degree AV block Nonspecific intraventricular block Cannot rule out Septal infarct , age undetermined Abnormal ECG Electronically Signed By: Alan Shepherd [id number]
--- NOTE | 2017-04-16 20:17 | HP ---
DATE OF ADMISSION: 04/12/2017 PRIMARY DIAGNOSIS: Respiratory failure with encephalopathy, hypertension, diastolic heart failure, sepsis, seizure disorder, benign prostatic hypertrophy. HISTORY OF PRESENT ILLNESS: The patient is a 81-year-old gentleman with chronic respiratory failure requiring tracheostomy and vent for almost 5 years. The patient also has history of diastolic hear t failure, hypertension, benign prostatic hypertrophy, dysphagia and is being fed through G-tube. T he patient was transferred to [facility] ER on 04/12/2017 due to altered level of conscious ness. The patient underwent CT of the brain, which did not reveal any intracranial pathology. The patient was noted to have white count 11.5, hemoglobin was 8.7, BUN 47, creatinine 0.7. The patient had a temperature of 99.4. The patient was diagnosed with possible sepsis. The patient also was e ncephalopathic. Normally at baseline he is awake and is able to follow simple commands intermittent ly. The patient was seen by Dr. Nagel from an infectious disease standpoint, Dr. Redd from card iac standpoint, Dr. Cordova from pulmonary standpoint. The patient also was given Lasix initially d ue to congestive heart failure. The patient, however, subsequently dropped his blood pressure and r equired vasopressor as well as IV fluids. I met with the patient's family members and they requeste d the patient to have terminal extubation and be placed on comfort measures only. The patient has h ad several admissions in the last 5 years and the quality of life had declined significantly. The p atient is total care. The patient is being admitted under hospice care. REVIEW OF SYSTEMS: In addition to above, the patient did not have any recent seizure, no reported t emperature spike today. No reported vomiting, no reported GI bleed. No reported wheezing. No repo rted abdominal distention. The patient does have generalized body edema. PAST SURGICAL HISTORY: Status post G-tube and tracheostomy. FAMILY HISTORY: Noncontributory. SOCIAL HISTORY: No smoking, no alcohol. PHYSICAL EXAMINATION: GENERAL: The patient is lethargic but arousable, does not follow commands. VITAL SIGNS: Blood pressure 120/50, pulse 55, respirations 10, temperature 98.4, O2 saturation 99% on FiO2 of 30%. HEENT: No eye discharge. Conjunctivae and lids are normal. The patient has cataract, left eye. O ropharynx grossly negative. NECK: Tracheostomy in place, mild stricture, no mass. CHEST: Revealed diminished air entry at bases. Coarse breath sounds. CARDIOVASCULAR: S1, S2 normal. No murmur. ABDOMEN: Soft, nondistended. G-tube in place. EXTREMITIES: Edema present. NEUROLOGIC: The patient is lethargic. No useful communication possible. The patient has weakness in all extremities, worse in the lower extremities. LABORATORY DATA: Recent labs: Sodium 151, potassium 4.3, BUN 14, creatinine 0.5, glucose 152. WBC s 5.2, hemoglobin 8.3, platelets 93. IMPRESSION: 1. Respiratory failure. 2. 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 3. Sepsis, possibly related to healthcare-associated acquired pneumonia. One blood culture was pos itive for gram-positive cocci. 4. Paroxysmal atrial fibrillation. The patient is currently in sinus rhythm. 5. Dysphagia. 6. Seizure disorder. 7. History of hypertension. PLAN: The patient will be terminally extubated as per family request. The patient will be given 5 mg of morphine and 2 mg of Ativan prior to extubation and will be started on 1 mg an hour morphine d rip, which will be titrated for comfort care. The patient will also be started on scopolamine patch and atropine drops for secretion, DuoNeb for chest congestion, Zofran for nausea, vomiting, IV Ativ an will be used for breakthrough seizure as well as anxiety. Meanwhile, the patient will be continu ed on his seizure medications. Plan of care discussed with [facility] nurse as well as [facility] ICU nurse. I also spoke with patient's family and explained to them about the plan of care. The patient remains terminally ill and appropriate for [facility] level of care. Dictated By: ROSHNI BRADFORD/DAVID Conf#: [id number] DID#: [id number]
--- NOTE | 2017-04-17 19:43 | DES ---
DATE OF ADMISSION: 04/12/2017 DATE OF : 04/16/2017 TIME OF : 1924. CAUSE OF : Cardiac arrest secondary to atherosclerotic heart disease and other diagnosis sepsi s with chronic respiratory failure, tracheostomy and vent dependent, dysphagia and G-tube dependent, seizure disorder, paroxysmal atrial fibrillation, hypertension. REASON FOR ADMISSION: The patient was a 81-year-old gentleman with chronic respiratory failure requ iring tracheostomy and vent for almost 5 years. Patient also had history of hypertension, diastolic heart failure, benign prostatic hypertrophy, seizure disorder, dysphagia. The patient had been [facility] bedridden for the last several years and has had multiple admissions to acute [facility] hospital f or infections. Patient was recuperating at [facility] unit and was transferred to [facility] on 04/12/2017 for fever and sepsis. The patient was seen by Dr. Sunil dodson from Infectious Disease standpoint, Dr. Redd from cardiac standpoint. The patient continued to decline and the patient's family requested comfort care as the patient's quality of life had been declining. The patient had expressed his wishes to the family that he did not want to live in this situation. The patient was initially made DNR and subsequently was referred to hospice for comfort care. The patient was terminally extubated yesterday as per family request and was started on morp melita drip. The patient at 1924 was noted to have no bleeding, no heart sound or pulse. The patient was pronounced at 1924. I met with the patient's family on the day of expiry and updated them regarding plan of care. Dictated By: ROSHNI BRADFORD/DAVID Conf#: [id number] DID#: [id number]
== END 2017-04-16 19:25 | disposition expired | DRG 870 ==
LOC: E/R 10:31 → TEL 11:52 → ICU 14:19
PROVIDERS: ADMIT Internal Medicine; ATTEND Internal Medicine
PROC: 5A1955Z Respiratory Ventilation, Greater than 96 Consecutive Hours (ICD-10-PCS; principal; 2017-04-12)
PROC: 4A133R1 Monitoring of Arterial Saturation, Peripheral, Percutaneous Approach (ICD-10-PCS; 2017-04-12)
PROC: 30233N1 Transfusion of Nonautologous Red Blood Cells into Peripheral Vein, Percutaneous Approach (ICD-10-PCS; 2017-04-13)
DX: A41.1 Sepsis due to other specified staphylococcus (principal); J96.21 Acute and chronic respiratory failure with hypoxia; R65.21 Severe sepsis with septic shock; G93.41 Metabolic encephalopathy; E87.4 Mixed disorder of acid-base balance; Z99.11 Dependence on respirator [ventilator] status; G40.909 Epilepsy, unspecified, not intractable, without status epilepticus; I48.0 Paroxysmal atrial fibrillation; R13.10 Dysphagia, unspecified; F03.90 Unspecified dementia, unspecified severity, without behavioral disturbance, psychotic disturbance, mood disturbance, and anxiety; J96.22 Acute and chronic respiratory failure with hypercapnia; I13.0 Hypertensive heart and chronic kidney disease with heart failure and stage 1 through stage 4 chronic kidney disease, or unspecified chronic kidney disease; I50.30 Unspecified diastolic (congestive) heart failure; J95.03 Malfunction of tracheostomy stoma; I46.9 Cardiac arrest, cause unspecified; Z66 Do not resuscitate; Z95.1 Presence of aortocoronary bypass graft; E78.5 Hyperlipidemia, unspecified; R33.9 Retention of urine, unspecified; K21.9 Gastro-esophageal reflux disease without esophagitis; J44.9 Chronic obstructive pulmonary disease, unspecified; Z74.01 Bed confinement status; Z93.1 Gastrostomy status; I25.10 Atherosclerotic heart disease of native coronary artery without angina pectoris; D64.9 Anemia, unspecified; N40.0 Benign prostatic hyperplasia without lower urinary tract symptoms; E11.22 Type 2 diabetes mellitus with diabetic chronic kidney disease; N18.9 Chronic kidney disease, unspecified; D69.6 Thrombocytopenia, unspecified; Y83.3 Surgical operation with formation of external stoma as the cause of abnormal reaction of the patient, or of later complication, without mention of misadventure at the time of the procedure
CPT/HCPCS: 36415; 36430; 36600; 70450; 71010; 80048; 80053; 80164; 80185; 81001; 82550; 82553; 82803; 82962; 83036; 83605; 83735; 84443; 84484; 85025; 85610; 85730; 86850; 86900; 86901; 86920; 87040; 87081; 87086; 93005; 93306; 94002; 94003; 96365; 96375; J0692; J1650; J1815; J1940; J2060; J2270; J3370; J7030; J7040; J7050; J7060; P9016